=== PATIENT | female | born 1970 | race Hispanic/Latino ===

== ENCOUNTER 2016-12-03 13:09 | Inpatient (IN) | payer OTHER ==
[2016-12-03 14:14] LABS: Anion Gap 18 mmol/L; BUN/Creatinine Ratio 14.28; Blood Urea Nitrogen 10 mg/dL (7-17); Calcium 9.1 mg/dL (8.4-10.2); Carbon Dioxide 26 mmol/L (22-30); Chloride 98.6 mmol/L (98-107); Glucose 129 mg/dL (65-100); Potassium 3.8 mmol/L (3.6-5.0); Sodium 139 mmol/L (137-145)
[2016-12-03 14:22] LABS: Basophils % (Auto) 0.6 % (0.0-1.8); Eosinophils % (Auto) 1.3 % (0.0-4.3); Hematocrit 21.3 % (30.3-42.9); Hemoglobin 6.5 gm/dl (10.1-14.3); Mean Corpuscular HGB Conc 31 % (30-34); Mean Corpuscular Hemoglobin 22 pg (28-32); Mean Corpuscular Volume 71 fl (79-97); Platelet Count 290 K/mm3 (140-440); Red Cell Distribution Width 19.5 % (13.2-15.2); White Blood Count 8.9 K/mm3 (4.5-11.0)
[2016-12-03] MEDS ORDERED: ZOFRAN ONE (14:43)
[2016-12-03] MEDS ORDERED: ZOFRAN IV ONE (14:51)
[2016-12-03] MEDS ORDERED: NACL 0.9% 500 ML 500 ML IV ONE (16:09)
--- NOTE | 2016-12-03 16:37 | Emergency Department Report ---
ED Chest Pain HPI - General Chief Complaint: Chest Pain Stated Complaint: CHEST PAIN/RECTAL BLEED Time Seen by Provider: 12/03/16 16:08 Source: patient Mode of arrival: Ambulatory Limitations: No Limitations - History of Present Illness Initial Comments: Patient is a 46-year-old female with history of hypertension into the ER complaining of chest pain and weakness. Patient reports for the last month she has been having intermittent chest pain which is sharp in nature, radiating to her jaw,arms, amd lower legs. She also reports bouts of SOB, diaphoresis, nausea, vomiting, and diarrhea. More recently she's noticed 2 days of bright red blood per rectum. Patient reports the last month she was following her primary care doctor who thought the chest pain was related to anxiety and started her on a mood stabilizer. Patient reports no difference in chest pain. Patient denies any history of GI bleed, or dark tarry stools. Patient is not on any anticoagulants. Currently patient is chest pain-free and has no other complaints except weakness. Otherwise no fevers, headache, abdominal pain, trauma, travel, or sick contacts. No prior history of transfusions. -: Gradual, month(s) (1) Severity: mild Severity scale (0 -10): 0 Quality: sharp Consistency: intermittent Improves With: nothing Worsens With: nothing re: nausea, vomting, diaphoresis, dyspnea - Related Data Previous Rx's Medication Instructions Recorded Last Taken Type Clindamycin [Clindamycin CAP] 300 mg PO Q8H #20 cap 05/03/15 Unknown Rx Allergies Allergy/AdvReac Type Severity Reaction Status Date / Time Penicillins Allergy Shortness Verified 05/03/15 12:31 of Breath ANGELO score - Angelo Score Age > 65: (0) No Aspirin use within the Past 7 Days: (0) No 3 or more CAD Risk Factors: (0) No 2 or more Angina events in past 24 hrs: (1) Yes Known CAD with more than 50% Stenosis: (0) No Elevated Cardiac Markers: (0) No ST Deviation Greater than 0.5mm: (0) No ANGELO Score: 1 ED Review of Systems ROS: Stated complaint: CHEST PAIN/RECTAL BLEED Other details as noted in HPI Comment: All other systems reviewed and negative ED Past Medical Hx - Past Medical History Hx Hypertension: Yes - Social History Smoking Status: Former Smoker Substance Use Type: None - Medications Home Medications: Home Medications Medication Instructions Recorded Confirmed Last Taken Type Clindamycin [Clindamycin CAP] 300 mg PO Q8H #20 cap 05/03/15 Unknown Rx ED Physical Exam - General Limitations: No Limitations General appearance: alert, in no apparent distress - Head Head exam: Present: atraumatic, normocephalic - Eye Eye exam: Present: normal appearance - ENT ENT exam: Present: mucous membranes moist, other (pale conjunctiva) - Neck Neck exam: Present: normal inspection - Respiratory Respiratory exam: Present: normal lung sounds bilaterally. Absent: respiratory distress, wheezes, rales, rhonchi - Cardiovascular Cardiovascular Exam: Present: normal rhythm, tachycardia, normal heart sounds. Absent: irregular rhythm, systolic murmur, diastolic murmur, rubs, gallop - GI/Abdominal GI/Abdominal exam: Present: soft, normal bowel sounds. Absent: distended, tenderness, guarding, rebound, rigid, hernia - Rectal Rectal exam: Present: heme (-) stool (however in adequate stool sample), hemorrhoids (external). Absent: black stool, bloody stool - Extremities Exam Extremities exam: Present: normal inspection, full ROM. Absent: tenderness, pedal edema - Back Exam Back exam: Present: normal inspection - Neurological Exam Neurological exam: Present: alert, oriented X3 - Psychiatric Psychiatric exam: Present: normal affect, normal mood - Skin Skin exam: Present: warm, dry, intact, normal color. Absent: rash ED Course Vital Signs 12/03/16 12/03/16 12/03/16 13:20 14:33 14:40 Temperature 98.7 F Pulse Rate 103 H 147 H Respiratory 20 27 H 33 H Rate Blood Pressure 157/98 182/102 Blood Pressure [Right] O2 Sat by Pulse 100 100 Oximetry 12/03/16 12/03/16 12/03/16 14:50 14:59 15:00 Temperature 99.4 F Pulse Rate 101 H 105 H Respiratory 13 13 16 Rate Blood Pressure 182/102 154/116 Blood Pressure 154/109 [Right] O2 Sat by Pulse 100 100 100 Oximetry 12/03/16 12/03/16 12/03/16 15:02 15:10 15:20 Temperature Pulse Rate 110 H 102 H Respiratory 16 22 26 H Rate Blood Pressure 154/116 154/116 Blood Pressure [Right] O2 Sat by Pulse 99 99 Oximetry 12/03/16 12/03/16 12/03/16 15:30 15:40 15:50 Temperature Pulse Rate 91 H 99 H 94 H Respiratory 13 14 15 Rate Blood Pressure 154/116 154/116 154/116 Blood Pressure [Right] O2 Sat by Pulse 100 100 99 Oximetry 12/03/16 12/03/16 12/03/16 16:00 16:10 16:20 Temperature Pulse Rate 87 103 H 96 H Respiratory 13 24 19 Rate Blood Pressure 138/83 138/83 138/83 Blood Pressure [Right] O2 Sat by Pulse 97 100 100 Oximetry 12/03/16 12/03/16 12/03/16 16:30 16:40 16:50 Temperature Pulse Rate 95 H 95 H 97 H Respiratory 17 15 15 Rate Blood Pressure 138/83 138/83 138/83 Blood Pressure [Right] O2 Sat by Pulse 100 100 100 Oximetry 12/03/16 12/03/16 12/03/16 17:00 17:10 17:20 Temperature Pulse Rate 97 H 91 H 119 H Respiratory 22 20 20 Rate Blood Pressure 135/77 135/77 135/77 Blood Pressure [Right] O2 Sat by Pulse 100 100 100 Oximetry 12/03/16 12/03/16 12/03/16 17:30 17:40 17:47 Temperature Pulse Rate 86 99 H 105 H Respiratory 16 22 20 Rate Blood Pressure 135/77 135/77 Blood Pressure 135/77 [Right] O2 Sat by Pulse 100 100 100 Oximetry 12/03/16 12/03/16 12/03/16 17:50 18:00 18:10 Temperature Pulse Rate 89 90 90 Respiratory 13 18 17 Rate Blood Pressure 135/77 143/74 143/74 Blood Pressure [Right] O2 Sat by Pulse 100 99 97 Oximetry 12/03/16 12/03/16 12/03/16 18:20 18:30 18:40 Temperature Pulse Rate 90 91 H 123 H Respiratory 18 12 24 Rate Blood Pressure 143/74 135/77 135/77 Blood Pressure [Right] O2 Sat by Pulse 99 100 100 Oximetry 12/03/16 12/03/16 12/03/16 18:50 19:00 19:10 Temperature Pulse Rate 84 82 88 Respiratory 23 15 15 Rate Blood Pressure 135/77 143/74 108/73 Blood Pressure [Right] O2 Sat by Pulse 100 99 Oximetry 12/03/16 20:02 Temperature 98.8 F Pulse Rate 87 Respiratory 14 Rate Blood Pressure 125/80 Blood Pressure [Right] O2 Sat by Pulse 99 Oximetry ED Medical Decision Making - Lab Data Result diagrams: 12/03/16 13:42 12/03/16 13:42 - EKG Data -: EKG Interpreted by Me (13:35, normal sinus rhythm at 89 bpm, QTC 445 ms, LVH) EKG shows normal: ST-T waves (ST depressions inferior lateral leads, no STEMI) - Medical Decision Making Ordered 2u PRBC Critical care attestation.: If time is entered above; I have spent that time in minutes in the direct care of this critically ill patient, excluding procedure time. ED Disposition Clinical Impression: Chest pain, Anemia, Weakness Clinical Impression: (Ruled Out): Chest pain as manifestation of blood transfusion reaction Disposition: OP ADMITTED IP TO THIS HOSP Is pt being admited?: Yes Condition: Stable
--- NOTE | 2016-12-03 16:59 | XRay Report ---
PORTABLE CHEST INDICATION: Chest pain, shortness of breath, nausea, vomiting. COMPARISON: None similar. FINDINGS: Portable, frontal chest radiograph suggests borderline cardiomegaly and slight bronchovascular prominence centrally. No significant cephalization or large pleural effusions however. Clear lungs. EKG leads. Unremarkable bones. CONCLUSION: Borderline cardiomegaly and slight pulmonary vascular redistribution, as described. Please correlate. Thank you for the opportunity to participate in this patient's care.
--- NOTE | 2016-12-03 18:24 | Admit Criteria Form ---
Admission Criteria Documentation: CARDIOLOGY GRG Clinical Indications for Admission to Inpatient Care ( Place 'X' for any and all applicable criteria): Hospital admission is needed for appropriate care of the patient because of ANY ONE of the following (1): [ ] I. Hemodynamic instability as indicated by ALL of the following (1)(2)(3) (4)(5) [ ]a) Vital signs or other findings not as expected for chronic patient condition or baseline [ ]b) Instability indicated by ANY ONE of the following: [ ]i) Hypotension [ ]ii) Symptomatic Tachycardia unresponsive to treatment ( e.g., analgesia, fluids, sedation as indicated) [ ]iii) Inadequate perfusion indicated by ANY ONE of the following: [ ] 1) Lactic acidosis (> 2 mmol/L) [ ] 2) New abnormal capillary refill (> 3 seconds) [ ] 3) Reduced urine output [ ] 4) New altered mental status [ ]iv) Orthostatic vital sign changes unresponsive to treatment (e.g., fluids) [ ]v) IV inotropic or vasopressor medication required to maintain adequate blood pressure or perfusion [ ] II. Severe heart failure as indicated by ANY ONE of the following(17)(18) [ ]a) Respiratory distress [ ]b) Hypotension [ ]c) Anasarca (refractory to outpatient therapy) [ ]d) Cardiac arrhythmias of immediate concern [ ]e) Myocardial ischemia [ ] III. Cardiac arrhythmias or findings of immediate concern indicated by ANY ONE of the following (19)(20): [ ] a) Heart rhythms that are inherently dangerous or unstable indicated by ANY ONE of the following (21)(22)(23): [ ] i) Resuscitated ventricular fibrillation or cardiac arrest [ ] ii) Ventricular escape rhythm [ ] iii) Sustained ventricular tachycardia (30 seconds or more of ventricular rhythm at greater than 100 beats per minute) [ ] iv) Nonsustained ventricular tachycardia and ANY ONE of the following: [ ] 1) Suspected cardiac ischemia as cause or consequence of ventricular tachycardia [ ] 2) In setting of acute myocarditis [ ] b) Unstable cardiac conduction defects indicated by ANY ONE of the following(23)(24)(25) [ ] i) Type II second-degree atrioventricular block [ ]ii) Third-degree atrioventricular block [ ]iii) New-onset left bundle branch block with suspected myocardial ischemia [ ]c) Any heart rhythm and ANY ONE of the following (21)(22)(26)(27) (28) [ ] i) Continuous long-term ECG monitoring needed (e.g., initiation of drug requiring monitoring for more than 24 hours) [ ] ii) Patient has automatic implanted cardioverter defibrillator that is repeatedly firing, malfunctioning, or in need of immediate adjustment of settings beyond the scope of ambulatory or observation care [ ]d) Heart rhythms of concern due to ANY ONE of the following: [ ] i) Hypotension [ ] ii) Respiratory distress [ ] iii) Association with other significant symptoms (e.g., bradycardia with syncope or ongoing dizziness, supraventricular tachycardia with chest pain (14)(15)(17) [ ] IV. Monitoring for cardiac contusion beyond the scope of observation care needed [A](30)(31)(32) [ ] V. Surgical or device complication (e.g., valve replacement complication , pacemaker dysfunction) (35)(41)(44)(45)(46) [ ] . Inpatient palliative care needed. [B](49) Also use Inpatient Palliative Care Criteria [ ] VII. Nonbacterial thrombotic (marantic) endocarditis (36)(43)(47)(48) [X] VIII. Cardiology condition, symptom, or finding for which emergency and observation care has failed or are not considered appropriate. [ ] IX. Acute valvular disease requiring inpatient as indicated by ANY ONE of the following (41) [ ]a) Acute valvular regurgitation (42) [ ]b) Noninfectious valvulitis (43) [ ]c) Obstructive valve thrombosis [ ]d) Paravalvular leak [ ]e) Other significant valvular disorder remaining after emergency or observation level of care (as appropriate) [ ]X. Pericardial disease requiring inpatient treatment as indicated by ANY ONE of the following (33)(34)(35)(36)(37) [ ]a) Suspected tamponade (38)(39)(40) [ ]b) Hemopericardium [ ]c) Other significant pericardial disorder remaining after emergency or observation level of care (as appropriate) [ ] XI. Cardiac ischemia beyond scope of emergency and observation care. [ ] XII. Hypertension requiring inpatient treatment as indicated by ANY ONE of the following (6)(7)(8) [ ]a) SBP greater than 220 mm Hg or DBP greater than 120 mmHg despite treatment [ ]b) SBP greater than 140 mm Hg or DBP greater than 100 mm Hg with evidence of acute end organ damage as indicated by ANY ONE of the following [ ] i) Altered mental status [ ] ii) Acute renal failure as indicated by new onset of ANY ONE of the following (9)(10)(11)(12)(13) [ ]1) 3-fold rise in serum creatinine from baseline [ ]2) Serum creatinine greater than 4 mg/dL ( 354 micromoles/L) with acute rise greater than 0.5 mg/dL (44.2 micromoles/L) [ ]3) Reduction of more than 75% in estimated glomerular filtration rate from baseline [ ]4) Estimated glomerular filtration rate less than 35 mL/min/1.73m2 (0.59 mL/sec/1.73m2) in child up to 18 years of age [ ]5) Cessation of urine output indicated by ALL of the following [ ]A. Adequate volume status [ ]B. Inadequate urine output as indicated by ANY ONE of the following [ ]a. Urine output less than 0.3 mL/kg/hr for 24 hours [ ]b. Anuria (urine output less than 0.1 mL/kg/hr) for 12 hours [ ] iii) Aortic dissection [ ] iv) Myocardial Ischemia [ ] v) Left ventricular heart failure [ ]vi) Retinal Hemorrhage [ ]vii) Other significant finding [ ]c) Hypertension in child requiring inpatient treatment as indicated by ALL of the following(14)(15)(16) [ ] i) Outpatient treatment not effective, not available, or not appropriate [ ]ii) SBP or DBP greater than 95th percentile for age [ ]iii) Evidence of acute end organ damage as indicated by ANY ONE of the following [ ]1) Altered mental status [ ]2) Acute renal failure as indicated by new onset of ANY ONE of the following(9)(10)(11)(12)(13) [ ]A. 3-fold rise in serum creatinine from baseline [ ]B. Serum creatinine greater than 4 mg/dL (354 micromoles/L) with acute rise greater than 0.5 mg/dL (44.2 micromoles/L) [ ]C. Reduction of more than 75% in estimated glomerular filtration rate from baseline [ ]D. Estimated glomerular filtration rate less than 35 mL/min/1.73m2 (0.59 mL/sec/1.73m2) in child up to 18 years of age [ ]E. Cessation of urine output indicated by ALL of the following [ ]a. Adequate volume status [ ]b. Inadequate urine output as indicated by ANY ONE of the following [ ]i) Urine output less than 0.3 mL/kg/hr for 24 hours [ ]ii) Anuria ( urine output less than 0.1 mL/kg/hr) for 12 hours [ ]3) Severe headache [ ]4) Visual disturbance [ ]5) Retinal hemorrhage [ ]6) Other significant finding [ ]XIII. Complications of transplanted heart indicated by ANY ONE of the following(61): [ ]a) Acute graft rejection requiring inpatient management (eg, intravenous immunosuppression)(62)(63) [ ]b) Acute graft heart failure indicated by ANY ONE of the following(64): [ ]i) Hemodynamic instability [ ]ii) Cardiac arrhythmias of immediate concern [ ]iii) Pulmonary edema that is very severe (eg, mechanical ventilation needed, imminent or likely, need for 100% oxygen to keep oxygen saturation above 90%) [ ]iv) Pulmonary edema that is persistent as indicated by ALL of the following: [ ]1) New need for oxygen therapy to keep oxygen saturation above 90% (or increased FiO2 need from baseline) [ ]2) Has not improved sufficiently with emergency department or observation care IV diuretics or other heart failure treatments[E] [ ]v) Altered mental status that is severe or persistent [ ]vi) Increased creatinine (new on laboratory test) with reduction of more than 50% in estimated glomerular filtration rate from baseline [ ]vii) Progressively (ongoing) rising creatinine (known from past laboratory test) with reduction of more than 25% in estimated glomerular filtration rate from baseline [ ]viii) Acute renal failure [ ]ix) Acute peripheral ischemia (eg, examination shows pulseless, cool, mottled, or cyanotic extremity) [ ]x) Pulmonary artery catheter monitoring needed [ ]xi) Other sign or symptom of heart failure requiring inpatient treatment (ie, too severe or not responsive to outpatient and observation care treatment) [ ]c) Infection requiring inpatient management (eg, Hemodynamic instability, need for intravenous antimicrobial treatment)(66)(67)(68)(69)(70) [ ]d) Cardiac allograft vasculopathy requiring inpatient management ( eg evidence of cardiac ischemia)(71) [ ]e) Other complication of transplanted heart (eg, stroke, severe pulmonary hypertension, severe valvular dysfunction) requiring inpatient management(72) The original [facility] [employer] content created by [email or web address] has been revised. The portions of the content which have been revised are identified through the use of italic text or in bold, and [facility] has neither reviewed nor approved the modified material. All other unmodified content is copyright [facility] [email or web address]. Please see references footnoted in the original [facility] [email or web address] edition 2016 Admission Criteria Met: Yes
--- NOTE | 2016-12-03 23:43 | Event Note ---
Date: 12/03/16 See H/p in reports Chest pain r/o MO Acute anemia HTN uncontrolled GI eval
[2016-12-04] MEDS ORDERED: TYLENOL PO PRN (01:04)
[2016-12-04] MEDS ORDERED: MILK OF MAGNESIA PO PRN (01:04)
[2016-12-04] MEDS ORDERED: ZOFRAN IV PRN (01:04)
[2016-12-04] MEDS ORDERED: DULCOLAX PR PRN (01:04)
[2016-12-04] MEDS ORDERED: AMBIEN PO PRN (01:04)
[2016-12-04] MEDS ORDERED: SODIUM CHLORIDE FLUSH SYRINGE 10 ML IV PRN (01:17)
[2016-12-04] MEDS: PROTONIX 80 MG in NACL 0.9% 100 ML IV SCH ×2 (02:33→17:16)
[2016-12-04] MEDS: D5/0.45NS 1,000 ML IV SCH ×2 (02:34→20:10)
--- NOTE | 2016-12-04 02:51 | History and Physical Report ---
CHIEF COMPLAINT: Chest pain for the last one month. HISTORY OF PRESENT ILLNESS: A 46-year-old -[place] female who presents with left-sided chest pain, intermittent in nature, more so for the last few days. Her primary care attributed the chest pain to anxiety and was given mood stabilizers. The patient also denies any GI bleed or dark tarry stools. Not on any NSAIDs. PAST MEDICAL HISTORY: Significant for hypertension. SOCIAL HISTORY: Former smoker. ANGELO score is 1. HOME MEDICATIONS: Clindamycin 300 mg q.8h. FAMILY HISTORY: Significant for hypertension. REVIEW OF SYSTEMS: Significant for; CONSTITUTIONAL: No weight loss, no weight gain. HEENT: No sore throat, no postnasal drip. CARDIOVASCULAR AND RESPIRATORY SYSTEM: Left-sided chest pain. No diaphoresis. No palpitations. GASTROINTESTINAL: No nausea, no vomiting, no diarrhea. No black tarry stools. EXTREMITIES: No muscle pains. CENTRAL NERVOUS SYSTEM: No syncope, no seizures. PHYSICAL EXAMINATION: GENERAL: Young female, cooperative during examination. VITAL SIGNS: Blood pressure 154/116 and 182/102, pulse is 100, respirations 16, temperature is 98.7. HEENT: Unremarkable. Pupils equal and reactive. NECK: Supple, no lymphadenopathy, no thyromegaly. LUNGS: Clear to auscultation and percussion. Good air entry. CARDIOVASCULAR: S1, S2 heard. No gallop, no murmur, no rub. Apical impulse in left fifth intercostal space and midclavicular line. ABDOMEN: Soft and benign. No hepatosplenomegaly. No guarding, no rigidity. Hernial orifices are normal. EXTREMITIES: Good pedal pulses. No pedal edema. CENTRAL NERVOUS SYSTEM: Alert and oriented x 4. NEUROLOGIC: Nonfocal exam. LABORATORY DATA: Significant for white count of 8900, H and H is 6.5 and 21.3, and platelet count is 290,000. Sodium is 139, potassium is 3.8, chloride is 98.6, bicarbonate is 26, BUN and creatinine is 10 and 0.7, and glucose is 129. IMAGING: EKG shows ST-T wave changes in the inferior leads. ST depressions. No STEMI. ASSESSMENT AND PLAN: 1. Chest pain, rule out myocardial infarction, chest pain protocol. 2. Acute anemia. Blood transfusion for the time being. Also, GI consult is requested. 3. Hypertension, uncontrolled. Optimize antihypertensives. 4. Deep venous thrombosis prophylaxis, sequential compression devices only. JOB# [id number] GATITO/ROSY
[2016-12-04 06:58] LABS: Creatine Kinase MB 2.2 ng/mL (0.0-4.0)
[2016-12-04 07:01] LABS: Creatine Kinase 173 units/L (30-135)
[2016-12-04] MEDS ORDERED: PEPCID PO SCH (10:00)
[2016-12-04] MEDS: NORVASC PO SCH (12:20)
[2016-12-04] MEDS: PAXIL PO SCH (12:21)
[2016-12-04] MEDS: COZAAR PO SCH (12:21)
[2016-12-04] MEDS: HCTZ PO SCH (12:22)
--- NOTE | 2016-12-04 14:07 | Gastroenterology Consultation ---
<VARGASTHOMAS ANN - Last Filed: 12/04/16 14:15> History of Present Illness - Reason for Consult Consult date: 12/04/16 anemia Requesting physician: ASHLEY VASQUEZ - History of Present Illness Ms. Schumacher is a 46 y/o female admitted with Chest pain. She was found to be anemic on admission with an H/H of 6.5/25. She states she has been having BRBPR x 2 weeks. No prior hx of chest pain, no abdominal pain. She reports she has seen blood per tissue intermittently in the past. No prior EGD or colonoscopy. No weight loss or N/V. She recently took 5-6 Goody powders for menstrual cramping, she also reports taking a daily ASA for preventative measures. BUN is WNL. Past History Past Medical History: hypertension Past Surgical History: Other (tubal ligation) Social history: lives with family. denies: smoking Family history: hypertension Medications and Allergies Allergies Allergy/AdvReac Type Severity Reaction Status Date / Time Penicillins Allergy Shortness Verified 05/03/15 12:31 of Breath Home Medications Medication Instructions Recorded Confirmed Last Taken Type Hydrochlorothiazide [HCTZ] 25 mg PO DAILY 12/03/16 12/03/16 12/03/16 History PARoxetine [Paxil] 20 mg PO DAILY 12/03/16 12/03/16 12/03/16 History amLODIPine [Norvasc] 5 mg PO DAILY 12/03/16 12/03/16 12/03/16 History Active Meds: Active Medications Acetaminophen (Tylenol) 650 mg PO Q4H PRN PRN Reason: Pain MILD(1-3)/Fever >100.5/NICHOLSON Amlodipine Besylate (Norvasc) 5 mg PO DAILY [facility] Last Admin: 12/04/16 12:20 Dose: 5 mg Bisacodyl (Dulcolax) 10 mg ME QDAY PRN PRN Reason: Constipation unrelieved by MOM Hydrochlorothiazide (Hctz) 25 mg PO DAILY [facility] Last Admin: 12/04/16 12:22 Dose: 25 mg Hydromorphone HCl (Dilaudid) 1 mg IV Q3H PRN PRN Reason: Pain , Severe (7-10) Dextrose/Sodium Chloride (D5/0.45ns) 1,000 mls @ 100 mls/hr IV DIRECT [facility] Last Admin: 12/04/16 02:34 Dose: 100 mls/hr Pantoprazole Sodium 80 mg/ (Sodium Chloride) 100 mls @ 10 mls/hr IV DIRECT [facility] PRN Reason: 8 MG/HR Last Admin: 12/04/16 02:33 Dose: 8 mg/hr, 10 mls/hr Losartan Potassium (Cozaar) 100 mg PO QDAY [facility] Last Admin: 12/04/16 12:21 Dose: 100 mg Magnesium Hydroxide (Milk Of Magnesia) 30 ml PO Q4H PRN PRN Reason: Constipation Ondansetron HCl (Zofran) 4 mg IV Q3H PRN PRN Reason: N/V unrelieved by Reglan Oxycodone/Acetaminophen (Percocet 5/325) 1 tab PO Q6H PRN PRN Reason: Pain, Moderate (4-6) Paroxetine HCl (Paxil) 20 mg PO DAILY [facility] Last Admin: 12/04/16 12:21 Dose: 20 mg Sodium Chloride (Sodium Chloride Flush Syringe 10 Ml) 10 ml IV PRN PRN PRN Reason: LINE FLUSH Zolpidem Tartrate (Ambien) 5 mg PO QHS PRN PRN Reason: Insomnia Review of Systems - Review of Systems All systems: negative Cardiovascular: chest pain Gastrointestinal: BRBPR Exam - Constitutional Vital Signs: Temp Pulse Resp BP Pulse Ox 97.6 F 87 20 163/93 98 12/04/16 08:00 12/04/16 12:46 12/04/16 10:00 12/04/16 08:00 12/04/16 10:00 General appearance: no acute distress - EENT Eyes: EOM intact ENT: hearing intact - Neck Neck: supple - Respiratory Respiratory: bilateral: CTA - Cardiovascular Rhythm: regular Heart Sounds: Present: S1 & S2 - Gastrointestinal General gastrointestinal: Present: soft, non-tender, normal bowel sounds - Integumentary Integumentary: Present: warm, dry - Neurologic Neurological: alert and oriented x3 - Psychiatric Psychiatric: appropriate mood/affect, cooperative - Labs CBC & Chem 7: 12/03/16 13:42 12/03/16 13:42 Lab Results: Laboratory Results - last 24 hr 12/04/16 06:09 Total Creatine Kinase 173 H CK-MB (CK-2) 2.2 CK-MB (CK-2) Rel Index 1.2 Troponin T < 0.010 Assessment and Plan 1. Chest Pain -Likely 2/2 anemia. Patient underwent first part of stress test this AM and will complete tomorrow. -Troponins negative x 3 -Echo pending. 2. Anemia -Microcytic -Patient does report heavy menstrual cycles as well, but H/H WNL in 2014. -BRBPR increased over the last 2 weeks. -BUN WNL, however in the setting of daily NSAID use and significant drop of H/H from Prior baseline, will order EGD/Colonoscopy. -Tenative plan for tomorrow. -Prep this PM -NPO after MN -Check Coags ~~~~~~ of note, patient is to complete last part of stress test in AM. <JAMAICA MILLS - Last Filed: 12/04/16 15:51> Medications and Allergies Active Meds: Active Medications Acetaminophen (Tylenol) 650 mg PO Q4H PRN PRN Reason: Pain MILD(1-3)/Fever >100.5/NICHOLSON Amlodipine Besylate (Norvasc) 5 mg PO DAILY [facility] Last Admin: 12/04/16 12:20 Dose: 5 mg Bisacodyl (Dulcolax) 10 mg ME QDAY PRN PRN Reason: Constipation unrelieved by MOM Hydrochlorothiazide (Hctz) 25 mg PO DAILY [facility] Last Admin: 12/04/16 12:22 Dose: 25 mg Hydromorphone HCl (Dilaudid) 1 mg IV Q3H PRN PRN Reason: Pain , Severe (7-10) Dextrose/Sodium Chloride (D5/0.45ns) 1,000 mls @ 100 mls/hr IV DIRECT [facility] Last Admin: 12/04/16 02:34 Dose: 100 mls/hr Pantoprazole Sodium 80 mg/ (Sodium Chloride) 100 mls @ 10 mls/hr IV DIRECT CORDELIA PRN Reason: 8 MG/HR Last Admin: 12/04/16 02:33 Dose: 8 mg/hr, 10 mls/hr Losartan Potassium (Cozaar) 100 mg PO QDAY [facility] Last Admin: 12/04/16 12:21 Dose: 100 mg Magnesium Hydroxide (Milk Of Magnesia) 30 ml PO Q4H PRN PRN Reason: Constipation Ondansetron HCl (Zofran) 4 mg IV Q3H PRN PRN Reason: N/V unrelieved by Reglan Oxycodone/Acetaminophen (Percocet 5/325) 1 tab PO Q6H PRN PRN Reason: Pain, Moderate (4-6) Paroxetine HCl (Paxil) 20 mg PO DAILY [facility] Last Admin: 12/04/16 12:21 Dose: 20 mg Polyethylene Glycol/Electrolytes (Golytely) 4,000 ml PO ONCE ONE Stop: 12/04/16 17:01 Sodium Chloride (Sodium Chloride Flush Syringe 10 Ml) 10 ml IV PRN PRN PRN Reason: LINE FLUSH Zolpidem Tartrate (Ambien) 5 mg PO QHS PRN PRN Reason: Insomnia Exam - Constitutional Vital Signs: Temp Pulse Resp BP Pulse Ox 97.6 F 87 20 163/93 98 12/04/16 08:00 12/04/16 12:46 12/04/16 10:00 12/04/16 08:00 12/04/16 10:00 - Labs CBC & Chem 7: 12/03/16 13:42 12/03/16 13:42 Lab Results: Laboratory Results - last 24 hr 12/04/16 06:09 Total Creatine Kinase 173 H CK-MB (CK-2) 2.2 CK-MB (CK-2) Rel Index 1.2 Troponin T < 0.010 Assessment and Plan Pt has had intermittent rectal bleed x 2-3 yrs. Over the last week, she has had BRB dripping or running out into the toilet bowl after a normal brown BM 2- 3x/d. No change in BMs, no rectal or abd pain. She has experienced CONDE and chest discomfort with exertion while working at the [employer] or heat over the last month. No known hemorrhoids. 1. Chest pain - due to anemia. Discussed with Hospitalist, who has cancelled Cardiac evaluation due to anemia as source, and low likelihood of cardiac disease. 2. Anemia - microcytic and due to chronic slow blood loss from menses and rectal losses. Most likely anorectal source and likely hemorrhoids. No hx of melena. - agree with transfusion Needs colonoscopy
--- NOTE | 2016-12-04 15:51 | Progress Note ---
Assessment and Plan Ms. Schumacher is a 46 y/o female presented with Chest pain and BRBPR x 2 weeks. She was found to be anemic on admission with an H/H of 6.5/25. She recently took 5-6 Goody powders for menstrual cramping, she also reports taking a daily ASA for preventative measures. Chest pain -Likely due to demand ischemia -Cardiac enzymes are normal -Patient had first phase of the stress test today will complete the second rays tomorrow Acute anemia - Due to lower GI bleed -GI following, plan for colonoscopy likely on Wednesday - We will avoid heparin HTN uncontrolled - We'll place on home medications and will adjust medicine as needed - She is currently on HCTZ, Cozaar and amlodipine Obesity, likely due to excess calorie - Dietary recommendations when medically stable GI and DVT prophylaxis - Protonix and SCD Subjective Date of service: 12/04/16 Interval history: Patient seen and examined. Medical records and medication list reviewed. No acute event overnight noted by the RN. Patient denies any chest pain or difficulty breathing. Patient states that she was having gross hematochezia for the past few days Discussed plan of care at bedside with patient. Objective - Exam Narrative Exam: GENERAL: well-developed obese -[place] female lying on bed appeared to be in no discomfort. HEENT: Normocephalic. Atraumatic. No conjunctival congestion or icterus. Patient has moist mucous membranes. NECK: Supple. Trachea midline. CHEST/LUNGS: Clear to auscultated bilaterally, breathing nonlabored. No wheezes crackles or rhonchi. HEART/CARDIOVASCULAR: Regular in rate and rhythm. S1 and S2 positive. ABDOMEN: Abdomen is soft, nontender. Patient has normal bowel sounds. SKIN: There is no rash. Warm and dry. NEURO: No focal motor deficit. Follows command. MUSCULOSKELETAL: No joint effusion or tenderness. EXTRIMITY: No edema, no cyanosis or clubbing. PSYCH: Cooperative. - Constitutional Vitals: Vital Signs - 12hr 12/04/16 12/04/16 12/04/16 04:58 08:00 10:00 Temperature 97.6 F 97.6 F Pulse Rate Pulse Rate [ 68 87 78 From Monitor] Respiratory 18 20 20 Rate Respiratory 20 Rate [Chest] Blood Pressure 122/60 163/93 [Left Arm] O2 Sat by Pulse 97 98 98 Oximetry 12/04/16 12:46 Temperature Pulse Rate 87 Pulse Rate [ From Monitor] Respiratory Rate Respiratory Rate [Chest] Blood Pressure [Left Arm] O2 Sat by Pulse Oximetry - Labs CBC & Chem 7: 12/05/16 05:51 12/05/16 05:51 Labs: Abnormal lab results 12/04/16 Range/Units 06:09 Total Creatine Kinase 173 H (30-135) units/L
[2016-12-04] MEDS ORDERED: GOLYTELY PO ONE (17:00)
[2016-12-05 06:26] LABS: Basophils % (Auto) 0.5 % (0.0-1.8); Hematocrit 24.3 % (30.3-42.9); Hemoglobin 7.4 gm/dl (10.1-14.3); Mean Corpuscular HGB Conc 31 % (30-34); Mean Corpuscular Volume 75 fl (79-97); Platelet Count 227 K/mm3 (140-440); Red Blood Count 3.26 M/mm3 (3.65-5.03); White Blood Count 7.2 K/mm3 (4.5-11.0)
[2016-12-05 06:28] LABS: Mean Corpuscular Hemoglobin 23 pg (28-32); Red Cell Distribution Width 20.6 % (13.2-15.2)
[2016-12-05] MEDS: PROTONIX 80 MG in NACL 0.9% 100 ML IV SCH (06:45)
[2016-12-05 07:24] LABS: Alanine Aminotransferase 17 units/L (7-56); Albumin 3.5 g/dL (3.9-5); Albumin/Globulin Ratio 1.2 %; Alkaline Phosphatase 79 units/L (35-129); Anion Gap 18 mmol/L; Bilirubin,Total < 0.20 mg/dL (0.1-1.2); Blood Urea Nitrogen 7 mg/dL (7-17); Calcium 8.3 mg/dL (8.4-10.2); Carbon Dioxide 21 mmol/L (22-30); Chloride 103.5 mmol/L (98-107); Glucose 107 mg/dL (65-100); Potassium 4.1 mmol/L (3.6-5.0); Sodium 138 mmol/L (137-145); Total Protein 6.5 g/dL (6.3-8.2)
[2016-12-05] MEDS ORDERED: LEXISCAN IV ONE ×2 (08:20→09:33)
[2016-12-05] MEDS ORDERED: WATER FOR IRRIG STERILE IR ONE (11:51)
[2016-12-05] MEDS ORDERED: WATER FOR IRRIG STERILE ONE (11:52)
[2016-12-05] MEDS ORDERED: NACL 0.9% 1000 ML 1,000 ML ONE (12:14)
[2016-12-05] MEDS: NACL 0.9% 1000 ML 1,000 ML IV SCH ×2 (13:07→23:07)
[2016-12-05] MEDS ORDERED: VERSED IV ONE ×4 (13:07→13:47)
[2016-12-05] MEDS ORDERED: SUBLIMAZE ONE (13:08)
[2016-12-05] MEDS ORDERED: BENADRYL ONE (13:08)
[2016-12-05] MEDS ORDERED: SUBLIMAZE IV ONE (13:40)
[2016-12-05] MEDS ORDERED: BENADRYL IV ONE (13:42)
[2016-12-05] MEDS ORDERED: PROCTOSOL-HC PR PRN (14:22)
--- NOTE | 2016-12-05 14:26 | Post Operative Note ---
Pre-op diagnosis: GI bleed Post-op diagnosis: other (Polyps, Hemorrhoids, Abnormal Anal mucosa) Findings: 1. Poor prep (some semisolid brown stool throughout). 2. 3mm polyp, rectosigmoid, cold snare 3. Grade III IH and EH with trace bleed 4. Some of mucosa in the anal canal was irregular and friable; small biopsy taken Procedure: Colonoscopy with cold bx and cold snare polypectomy Anesthesia: MAC Surgeon: GARRETT GARCIA Estimated blood loss: minimal Pathology: list (1. Rectosigmoid polyp. 2. Anal canal mucosa.) Specimen disposition: to lab Condition: stable Disposition: floor (Recs: 1. Start topical care for hemorrhoids. 2. If stops bleeding, may d/c home. 3. If continues to bleed, will need surgical consult but would wait for biopsy of canal to return first. 4. Regular diet.)
--- NOTE | 2016-12-05 14:54 | Operative Report ---
PROCEDURE PERFORMED: Colonoscopy with cold snare polypectomy and cold biopsy. PREOPERATIVE DIAGNOSES: Rectal bleeding and anemia of unclear etiology. POSTOPERATIVE DIAGNOSES: Poor preparation, colon polyp, hemorrhoids, irregular mucosa in the anal canal. ENDOSCOPIST: Rikki Boo MD INSTRUMENT: Smartzer video endoscope. MEDICATIONS: Conscious sedation by a nurse and physician trained and qualified in conscious sedation. Medications used included fentanyl 50 mcg IV, Benadryl 25 mg IV and Versed 5 mg IV. The patient was monitored continuously throughout the procedure and for 30 minutes afterwards. ESTIMATED BLOOD LOSS: Minimal. COMPLICATIONS: None. SPECIMENS: 1. Rectosigmoid polyp. 2. Abnormal anal canal mucosa. IMPLANTS: None. ASSISTANTS: None. CONDITION AT COMPLETION: Stable. TECHNIQUE: The patient was informed of the risks and benefits of the procedure. She signed the informed consent to proceed. She was placed in left lateral decubitus position. The above sedative medications were given. Her vital signs remained stable throughout the procedure. The instrument was advanced from the anus to the cecum under direct visualization. The cecum was identified by the appendiceal orifice and the ileocecal valve. At that point, the bowel was insufflated and the endoscope was slowly withdrawn. The quality of preparation was poor and there was some semisolid brown stool throughout. FINDINGS: 1. Poor prep with semisolid brown stool throughout the colon. 2. A 3-mm polyp at the rectosigmoid junction, removed with cold snare polypectomy. 3. Grade 3 internal and external hemorrhoids with a trace of blood in the anal canal. 4. Submucosa in the anal canal was irregular and friable; a small biopsy was taken. RECOMMENDATIONS: 1. Start topical care for hemorrhoids. 2. If the patient stops bleeding, she may discharge home. 3. If the patient continues to bleed, she will need a surgical consult, but would wait for biopsy of the anal canal to return first. 4. Regular diet. JOB# [id number] JOHN/NTS
--- NOTE | 2016-12-05 18:08 | Progress Note ---
Assessment and Plan Ms. Schumacher is a 46 y/o female presented with Chest pain and BRBPR x 2 weeks. She was found to be anemic on admission with an H/H of 6.5/25. She recently took 5-6 Goody powders for menstrual cramping, she also reports taking a daily ASA for preventative measures. Chest pain -Likely due to demand ischemia -Cardiac enzymes are normal -Patient completed her stress test today, wait for result Acute anemia - Due to lower GI bleed from hemorrhoids - GI following, s/p colonoscopy today - We will avoid heparin HTN uncontrolled - We'll cont on home medications and will adjust medicine as needed - She is currently on HCTZ, Cozaar and amlodipine Hemorrhoids - placed on topical steroid - if cont to bleed will need surgery consult Obesity, likely due to excess calorie - Dietary recommendations when medically stable GI and DVT prophylaxis - Protonix and SCD Procedure: Colonoscopy with cold bx and cold snare polypectomy Pre-op diagnosis: GI bleed Post-op diagnosis: other (Polyps, Hemorrhoids, Abnormal Anal mucosa) Findings: 1. Poor prep (some semisolid brown stool throughout). 2. 3mm polyp, rectosigmoid, cold snare 3. Grade III IH and EH with trace bleed 4. Some of mucosa in the anal canal was irregular and friable; small biopsy taken Subjective Date of service: 12/05/16 Interval history: Patient seen and examined. Medical records and medication list reviewed. No acute event overnight noted by the RN. Patient denies any chest pain or difficulty breathing. Patient states that she was having gross hematochezia for the past few days She had another episode of bloody BM this am s/p colonoscopy today Discussed plan of care at bedside with patient. Objective - Exam Narrative Exam: GENERAL: well-developed obese -[place] female lying on bed appeared to be in no discomfort. HEENT: Normocephalic. Atraumatic. No conjunctival congestion or icterus. Patient has moist mucous membranes. NECK: Supple. Trachea midline. CHEST/LUNGS: Clear to auscultated bilaterally, breathing nonlabored. No wheezes crackles or rhonchi. HEART/CARDIOVASCULAR: Regular in rate and rhythm. S1 and S2 positive. ABDOMEN: Abdomen is soft, nontender. Patient has normal bowel sounds. SKIN: There is no rash. Warm and dry. NEURO: No focal motor deficit. Follows command. MUSCULOSKELETAL: No joint effusion or tenderness. EXTRIMITY: No edema, no cyanosis or clubbing. PSYCH: Cooperative. - Constitutional Vitals: Vital Signs - 12hr 12/05/16 12/05/16 12/05/16 08:35 09:55 10:00 Temperature 98.7 F Pulse Rate 74 113 H Pulse Rate [ 100 H From Monitor] Pulse Rate [ 80 100 H Right Radial] Respiratory 16 18 Rate Blood Pressure 142/91 123/83 Blood Pressure 121/84 [Right Arm] O2 Sat by Pulse 100 100 Oximetry 12/05/16 12/05/16 12/05/16 10:01 10:02 10:03 Temperature Pulse Rate 100 H 99 H 89 Pulse Rate [ From Monitor] Pulse Rate [ Right Radial] Respiratory Rate Blood Pressure 121/78 139/89 129/85 Blood Pressure [Right Arm] O2 Sat by Pulse Oximetry 12/05/16 12/05/16 12/05/16 10:04 12:45 13:00 Temperature 98.6 F Pulse Rate 89 80 80 Pulse Rate [ From Monitor] Pulse Rate [ Right Radial] Respiratory 16 Rate Blood Pressure 139/88 127/64 Blood Pressure [Right Arm] O2 Sat by Pulse 100 Oximetry 12/05/16 12/05/16 12/05/16 13:03 13:40 13:45 Temperature Pulse Rate 80 96 H Pulse Rate [ From Monitor] Pulse Rate [ 75 Right Radial] Respiratory 17 28 H Rate Blood Pressure 102/58 98/57 Blood Pressure 102/51 [Right Arm] O2 Sat by Pulse 100 99 Oximetry 12/05/16 12/05/16 12/05/16 13:50 13:55 14:00 Temperature Pulse Rate 89 89 105 H Pulse Rate [ From Monitor] Pulse Rate [ Right Radial] Respiratory 18 24 16 Rate Blood Pressure 170/147 94/53 89/46 Blood Pressure [Right Arm] O2 Sat by Pulse 99 99 100 Oximetry 12/05/16 12/05/16 12/05/16 14:01 14:16 14:31 Temperature 99.1 F Pulse Rate 83 76 75 Pulse Rate [ From Monitor] Pulse Rate [ Right Radial] Respiratory 17 19 18 Rate Blood Pressure 106/58 107/61 97/49 Blood Pressure [Right Arm] O2 Sat by Pulse 100 100 100 Oximetry 12/05/16 17:49 Temperature Pulse Rate Pulse Rate [ From Monitor] Pulse Rate [ 86 Right Radial] Respiratory Rate Blood Pressure Blood Pressure 124/72 [Right Arm] O2 Sat by Pulse Oximetry - Labs CBC & Chem 7: 12/05/16 05:51 12/05/16 05:51 Labs: Abnormal lab results 12/05/16 12/05/16 Range/Units 05:51 05:51 RBC 3.26 L (3.65-5.03) M/mm3 Hgb 7.4 L (10.1-14.3) gm/dl Hct 24.3 L (30.3-42.9) % MCV 75 L D (79-97) fl MCH 23 L (28-32) pg RDW 20.6 H (13.2-15.2) % [place] % (Auto) 12.5 H (0.0-7.3) % [place] # 0.9 H (0.0-0.8) K/mm3 Carbon Dioxide 21 L (22-30) mmol/L Creatinine 0.5 L (0.7-1.2) mg/dL Glucose 107 H (65-100) mg/dL Calcium 8.3 L (8.4-10.2) mg/dL Albumin 3.5 L (3.9-5) g/dL
[2016-12-05] MEDS: NORVASC PO SCH (18:25)
[2016-12-05] MEDS: COZAAR PO SCH (18:26)
[2016-12-05] MEDS: HCTZ PO SCH (18:27)
[2016-12-05] MEDS: PROCTOSOL-HC PR SCH (22:42)
[2016-12-06] MEDS: DILAUDID IV PRN ×3 (02:46→22:43)
--- NOTE | 2016-12-06 04:42 | Treadmill Report ---
THALLIUM STRESS TEST LEFT VENTRICLE: Left ventricle is at the upper limits of normal in size. Perfusion study is suboptimal, with evidence of GI uptake and somewhat heterogeneous uptake from motion artifact. There is normal apical thinning, but otherwise, no significant reversible defects identified. Gated analysis demonstrates normal left ventricular systolic function, ejection fraction 61%. CONCLUSION: This is a suboptimal perfusion study as described above, no significant reversible ischemia is demonstrated. Clinical correlation is recommended. [facility]# [id number] CA/NTS
[2016-12-06 04:57] LABS: Basophils % (Auto) 0.5 % (0.0-1.8); Eosinophils % (Auto) 2.2 % (0.0-4.3); Hematocrit 21.2 % (30.3-42.9); Hemoglobin 6.5 gm/dl (10.1-14.3); Mean Corpuscular HGB Conc 31 % (30-34); Mean Corpuscular Volume 75 fl (79-97); Platelet Count 213 K/mm3 (140-440); Red Blood Count 2.84 M/mm3 (3.65-5.03); White Blood Count 8.1 K/mm3 (4.5-11.0)
[2016-12-06 05:27] LABS: Mean Corpuscular Hemoglobin 23 pg (28-32); Red Cell Distribution Width 21.3 % (13.2-15.2)
[2016-12-06] MEDS ORDERED: NACL 0.9% 500 ML 500 ML IV ONE (08:07)
[2016-12-06] MEDS: PROCTOSOL-HC PR SCH ×3 (08:10→22:46)
--- NOTE | 2016-12-06 09:47 | Progress Note ---
Assessment and Plan Ms. Schumacher is a 46 y/o female presented with Chest pain and BRBPR x 2 weeks. She was found to be anemic on admission with an H/H of 6.5/25. She recently took 5-6 Goody powders for menstrual cramping, she also reports taking a daily ASA for preventative measures. Chest pain -Likely due to demand ischemia -Cardiac enzymes are normal -Patient completed her stress test on 12/05 which was normal Acute anemia - Due to lower GI bleed from hemorrhoids - s/p 2 units of PRBC transfusion following admission - GI following, s/p colonoscopy - Hb further dropped today, will consult surgery and will transfuse another unit PRBC HTN uncontrolled - We'll cont on home medications and will adjust medicine as needed - She is currently on HCTZ, Cozaar and amlodipine Hemorrhoids - placed on topical steroid - if cont to bleed will need surgery consult Obesity, likely due to excess calorie - Dietary recommendations when medically stable GI and DVT prophylaxis - Protonix and SCD Procedure: 12/05/16 Colonoscopy with cold bx and cold snare polypectomy Pre-op diagnosis: GI bleed Post-op diagnosis: other (Polyps, Hemorrhoids, Abnormal Anal mucosa) Findings: 1. Poor prep (some semisolid brown stool throughout). 2. 3mm polyp, rectosigmoid, cold snare 3. Grade III IH and EH with trace bleed 4. Some of mucosa in the anal canal was irregular and friable; small biopsy taken Subjective Date of service: 12/06/16 Interval history: Patient seen and examined. Medical records and medication list reviewed. No acute event overnight noted by the RN. Hb 6.5 this am, denies any bloody BM Discussed plan of care at bedside with patient. Objective - Exam Narrative Exam: GENERAL: well-developed obese -[place] female lying on bed appeared to be in no discomfort. HEENT: Normocephalic. Atraumatic. No conjunctival congestion or icterus. Patient has moist mucous membranes. NECK: Supple. Trachea midline. CHEST/LUNGS: Clear to auscultated bilaterally, breathing nonlabored. No wheezes crackles or rhonchi. HEART/CARDIOVASCULAR: Regular in rate and rhythm. S1 and S2 positive. ABDOMEN: Abdomen is soft, nontender. Patient has normal bowel sounds. SKIN: There is no rash. Warm and dry. NEURO: No focal motor deficit. Follows command. MUSCULOSKELETAL: No joint effusion or tenderness. EXTRIMITY: No edema, no cyanosis or clubbing. PSYCH: Cooperative. - Constitutional Vitals: Vital Signs - 12hr 12/05/16 12/06/16 12/06/16 22:00 00:15 05:00 Temperature 98.6 F 98.5 F Pulse Rate 92 H Pulse Rate [ 86 80 Right Radial] Respiratory 20 18 Rate Blood Pressure 118/59 95/57 [Right Arm] O2 Sat by Pulse 98 100 Oximetry 12/06/16 09:31 Temperature 99 F Pulse Rate Pulse Rate [ 91 H Right Radial] Respiratory 16 Rate Blood Pressure 102/68 [Right Arm] O2 Sat by Pulse 100 Oximetry - Labs CBC & Chem 7: 12/06/16 20:13 12/05/16 05:51 Labs: Abnormal lab results 12/06/16 Range/Units 03:43 RBC 2.84 L (3.65-5.03) M/mm3 Hgb 6.5 L (10.1-14.3) gm/dl Hct 21.2 L (30.3-42.9) % MCV 75 L (79-97) fl MCH 23 L (28-32) pg RDW 21.3 H (13.2-15.2) % [place] % (Auto) 13.4 H (0.0-7.3) % [place] # 1.1 H (0.0-0.8) K/mm3
[2016-12-06] MEDS: NORVASC PO SCH (10:48)
[2016-12-06] MEDS: HCTZ PO SCH (10:49)
[2016-12-06] MEDS: COZAAR PO SCH (10:49)
[2016-12-06] MEDS: PAXIL PO SCH (11:35)
--- NOTE | 2016-12-06 13:56 | Gastroenterology Progress Note ---
Assessment and Plan - Patient Problems (1) Acute blood loss anemia Current Visit: Yes Status: Acute Plan to address problem: - Colonoscopy (+) for small polyp (and brown stool) but there was oozing of blood in the anal canal associated with hemorrhoids, and ?irregular mucosa tissue. - Agree with surgical consult; would prefer to wait for intervention on the pathology of the biopsies of the anal canal. - For now, continue topical care with steroid creams. Subjective Date of service: 12/06/16 Principal diagnosis: Anemia/Rectal Bleed Interval history: The patient states that she had more rectal bleeding last night. She has no N/V /abdominal pain and is tolerating a regular diet. Objective - Constitutional Vitals: Temp Pulse Resp BP Pulse Ox 98.7 F 92 H 20 123/80 100 12/06/16 12:30 12/06/16 12:30 12/06/16 12:30 12/06/16 12:30 12/06/16 12:02 General appearance: no acute distress - EENT Eyes: PERRL, EOM intact ENT: hearing intact, clear oral mucosa - Respiratory Respiratory effort: normal Respiratory: bilateral: CTA - Cardiovascular Rhythm: regular Heart Sounds: Present: S1 & S2 - Gastrointestinal General gastrointestinal: Present: soft, non-tender, non-distended - Labs CBC & Chem 7: 12/06/16 03:43 12/05/16 05:51 Labs: Laboratory Results - last 24 hr 12/06/16 03:43 WBC 8.1 RBC 2.84 L Hgb 6.5 L Hct 21.2 L MCV 75 L MCH 23 L MCHC 31 RDW 21.3 H Plt Count 213 Lymph % (Auto) 33.1 [place] % (Auto) 13.4 H Eos % (Auto) 2.2 Baso % (Auto) 0.5 Lymph # 2.7 [place] # 1.1 H Eos # 0.2 Baso # 0.0 Seg Neutrophils % 50.8 Seg Neutrophils # 4.1
[2016-12-06 21:16] LABS: Hematocrit 24.1 % (30.3-42.9); Hemoglobin 7.6 gm/dl (10.1-14.3)
[2016-12-07 06:30] LABS: Hemoglobin 8.4 gm/dl (10.1-14.3)
[2016-12-07] MEDS: PROCTOSOL-HC PR SCH (07:09)
[2016-12-07] MEDS: PAXIL PO SCH (11:06)
[2016-12-07] MEDS: NORVASC PO SCH ×2 (11:07→18:26)
[2016-12-07] MEDS: COZAAR PO SCH ×2 (11:07→18:26)
[2016-12-07] MEDS: HCTZ PO SCH ×2 (11:07→18:27)
--- NOTE | 2016-12-07 11:12 | Anesthesia Consultation ---
Anesthesia Consult and Med Hx Date of service: 12/07/16 - Airway Anesthetic Teeth Evaluation: Good ROM Head & Neck: Adequate Mental/Hyoid Distance: Adequate Mallampati Class: Class II Intubation Access Assessment: Probably Good - Pulmonary Exam CTA: Yes - Cardiac Exam Cardiac Exam: RRR - Pre-Operative Health Status ASA Pre-Surgery Classification: ASA3 Proposed Anesthetic Plan: General - Cardiovascular System Hx Hypertension: Yes - Central Nervous System Hx Psychiatric Problems: Yes - Other Systems Hx Cancer: No Hx Obesity: Yes (MORBID, BMI 44) - Additional Comments Anesthesia Medical History Comments: NEGATIVE STRESS TEST EF 60% 12/05/16
[2016-12-07] MEDS ORDERED: DILAUDID IV PRN (11:13)
[2016-12-07] MEDS ORDERED: ZOFRAN IV PRN (11:13)
--- NOTE | 2016-12-07 11:13 | Anesthesia Day of Surgery ---
Anesthesia Day of Surgery - Day of Surgery Patient Examined: Yes Patient H&P Reviewed: Yes Patient is NPO: Yes
[2016-12-07] MEDS ORDERED: PEPCID IV SCH (11:35)
[2016-12-07] MEDS ORDERED: DILAUDID IV ONE (11:35)
[2016-12-07] MEDS ORDERED: MARCAINE 0.5% 30 ML INFILTRATI ONE (11:37)
[2016-12-07] MEDS: NACL 0.9% 1000 ML 1,000 ML IV SCH (11:50)
[2016-12-07] MEDS ORDERED: DILAUDID ONE (11:54)
[2016-12-07] MEDS ORDERED: DIPRIVAN 10 MG/ML IV ONE ×2 (11:54→13:01)
[2016-12-07] MEDS ORDERED: DECADRON ONE (11:54)
[2016-12-07] MEDS ORDERED: XYLOCAINE MPF 2% ONE (11:54)
[2016-12-07] MEDS ORDERED: ZOFRAN ONE (11:55)
[2016-12-07] MEDS ORDERED: VERSED IV NR (12:00)
[2016-12-07] MEDS ORDERED: ePHEDrine SULFATE ONE (12:46)
[2016-12-07] MEDS ORDERED: VANCOMYCIN/NS 1 GM/250 ML 1 GM/250 ML BAG IV NR (13:00)
[2016-12-07] MEDS ORDERED: NACL 0.9% IR ONE (13:05)
[2016-12-07] MEDS ORDERED: MARCAINE 0.5% INFILTRATI ONE (13:05)
[2016-12-07] MEDS ORDERED: SUBLIMAZE ONE (13:15)
[2016-12-07] MEDS ORDERED: THROMBIN (BOVINE) TP ONE (13:27)
[2016-12-07] MEDS ORDERED: GELFOAM TP ONE (13:28)
--- NOTE | 2016-12-07 14:04 | Consultation ---
HISTORY OF PRESENT ILLNESS: This patient was seen apparently on here. She came in with severe pain to the anal area with constipation and bleeding per rectum. She was admitted because of the above and she was seen by GI. She had a colonoscopy done yesterday by Dr. Boo. She was told that she has a small polyp in the colon. The reason for me being involved is that she had large hemorrhoids. She had them for may be about two years. She is a little bit on the constipated side. The hemorrhoid symptoms are mainly pain and bleeding, and according to the patient, Dr. Boo did not see hemorrhoids. She had tubal ligation. She never had any abdominal operations. The patient is a known case of hypertension. She is on medication for that. Allergic reactions were denied. She has 3 children. She denies any abdominal pain, any chest pain, any back pain. PHYSICAL EXAMINATION: GENERAL: At this point, she is a well preserved, obese black female. She is in no distress. She is very sociable. She told me that the pain in the anal area is less. HEAD AND NECK: Essentially nonrevealing. BREASTS: Symmetric. No evidence of specific masses. CHEST: Essentially clear. HEART: Sound is normal. ABDOMEN: Protuberant, soft, and benign. RECTAL: Showed evidence of fairly good size of hemorrhoids, stage 2, with some tenderness there. No bleeding. EXTREMITIES: Showed no signs of edema. IMPRESSION: Anal pain with bleeding upon bowel movements with negative colonoscopy except for some small polyps. External and internal hemorrhoid bleeding. I believe this needs to be addressed surgically, we will try to have this done tomorrow under general anesthesia. We will do also a proctoscopy as well. JOB# [id number] PIPO/ROSY
--- NOTE | 2016-12-07 14:28 | Event Note ---
Date: 12/07/16 The patient was not seen as she is apparently downstairs for surgery according to the hospitalist
[2016-12-07] MEDS: PERCOCET 5/325 PO PRN ×2 (14:50→18:26)
--- NOTE | 2016-12-07 15:55 | Operative Report ---
PREOPERATIVE DIAGNOSIS: Large internal and external hemorrhoids. POSTOPERATIVE DIAGNOSIS: Large internal and external hemorrhoids. PROCEDURE: Exam under anesthesia and hemorrhoidectomy. ANESTHESIA: General. BLOOD LOSS: Minimal. FINDINGS: The patient had two large hemorrhoids each measured about 4 x 3 x 3 cm located mainly at the 5 and 7 o'clock axis. There was nothing in the front. I was able to remove them in toto. DESCRIPTION OF PROCEDURE: With the patient in supine position, prepped and draped in usual fashion. I made an incision at the level of the mucocutaneous junction and then undermining the mucosa and the submucosa including the engorged veins. Between two clamps I was able to resect this area and this was closed with continuous stitch of 2-0 catgut on both sides. We had good hemostasis. I did the same for the other side which is the 5 o'clock axis and it was done same fashion leaving area for about 0.5 cm in between. We were once satisfied, the area was then infiltrated with the local anesthetic. I used for that purpose 6 mL of Marcaine and I used also Gelfoam with thrombin. Bandage were applied. The patient was then transferred to the recovery room in good condition. JOB# [id number] PIPO/ROSY
--- NOTE | 2016-12-07 16:16 | Progress Note ---
Assessment and Plan Ms. Schumacher is a 46 y/o female presented with Chest pain and BRBPR x 2 weeks. She was found to be anemic on admission with an H/H of 6.5/25. She recently took 5-6 Goody powders for menstrual cramping, she also reports taking a daily ASA for preventative measures. Colonoscopy was done following admission which showed bleeding due to hemorrhoids. Patient continued to have low hemoglobin following colonoscopy. Surgery was consulted and was taken for hemorrhoidectomy today. Chest pain -Likely due to demand ischemia -Cardiac enzymes are normal -Patient completed her stress test on 12/05 which was normal Acute anemia - GI following, s/p colonoscopy - Due to lower GI bleed from hemorrhoids - s/p 2 units of PRBC transfusion following admission - Hb further dropped following colonoscopy, required another unit of blood transfusion - Surgery was consulted, she had hemorrhoidectomy today HTN uncontrolled - We'll cont on home medications and will adjust medicine as needed - She is currently on HCTZ, Cozaar and amlodipine Hemorrhoids - initially placed on topical steroid -Surgery consulted, s/p hemorrhoidectomy for recurrent bleeding Obesity, likely due to excess calorie - Dietary recommendations when medically stable GI and DVT prophylaxis - Protonix and SCD Procedure: 12/05/16 Colonoscopy with cold bx and cold snare polypectomy Pre-op diagnosis: GI bleed Post-op diagnosis: other (Polyps, Hemorrhoids, Abnormal Anal mucosa) Findings: 1. Poor prep (some semisolid brown stool throughout). 2. 3mm polyp, rectosigmoid, cold snare 3. Grade III IH and EH with trace bleed 4. Some of mucosa in the anal canal was irregular and friable; small biopsy taken Subjective Date of service: 12/07/16 Principal diagnosis: Anemia/Rectal Bleed Interval history: Patient seen and examined. Medical records and medication list reviewed. had hemorrhoidectomy today, she tolerated the procedure well Discussed plan of care at bedside with patient. Objective - Exam Narrative Exam: GENERAL: well-developed obese -[place] female lying on bed appeared to be in no discomfort. HEENT: Normocephalic. Atraumatic. No conjunctival congestion or icterus. Patient has moist mucous membranes. NECK: Supple. Trachea midline. CHEST/LUNGS: Clear to auscultated bilaterally, breathing nonlabored. No wheezes crackles or rhonchi. HEART/CARDIOVASCULAR: Regular in rate and rhythm. S1 and S2 positive. ABDOMEN: Abdomen is soft, nontender. Patient has normal bowel sounds. SKIN: There is no rash. Warm and dry. NEURO: No focal motor deficit. Follows command. MUSCULOSKELETAL: No joint effusion or tenderness. EXTRIMITY: No edema, no cyanosis or clubbing. PSYCH: Cooperative. - Constitutional Vitals: Vital Signs - 12hr 12/07/16 12/07/16 12/07/16 06:23 10:10 10:55 Temperature 98.7 F 98.5 F Pulse Rate 84 80 Pulse Rate [ 86 Right Radial] Respiratory 16 20 Rate Blood Pressure 123/75 Blood Pressure 142/90 [Right Arm] O2 Sat by Pulse 99 99 Oximetry 12/07/16 12/07/16 12/07/16 13:48 13:53 13:55 Temperature 97.9 F Pulse Rate 96 H 127 H 116 H Pulse Rate [ Right Radial] Respiratory 17 22 24 Rate Blood Pressure 93/56 138/77 143/84 Blood Pressure [Right Arm] O2 Sat by Pulse 98 100 99 Oximetry 12/07/16 12/07/16 12/07/16 14:00 14:15 14:30 Temperature Pulse Rate 106 H 107 H 108 H Pulse Rate [ Right Radial] Respiratory 20 18 20 Rate Blood Pressure 130/79 138/92 126/96 Blood Pressure [Right Arm] O2 Sat by Pulse 98 98 97 Oximetry 12/07/16 12/07/16 14:45 14:50 Temperature 98.6 F Pulse Rate 94 H Pulse Rate [ Right Radial] Respiratory 18 18 Rate Blood Pressure 117/83 Blood Pressure [Right Arm] O2 Sat by Pulse 96 Oximetry - Labs CBC & Chem 7: 12/07/16 05:08 12/05/16 05:51 Labs: Abnormal lab results 12/06/16 12/07/16 Range/Units 20:13 05:08 Hgb 7.6 L 8.4 L (10.1-14.3) gm/dl Hct 24.1 L 26.0 L (30.3-42.9) %
--- NOTE | 2016-12-07 16:43 | Post Anesthesia Evaluation ---
- Post Anesthesia Evaluation Patient Participated: Yes Airway Patent: Yes Stable Respiratory Function: Yes Nausea/Vomiting: No Temp > 96.8F: Yes Pain Manageable: Yes Adequeate Hydration: Yes Anesthesia Complications: No Block Receding Appropriately: Not Applicable Patient on Ventilator: No
[2016-12-07] MEDS: DILAUDID IV PRN ×2 (20:00→23:01)
[2016-12-08] MEDS: PERCOCET 5/325 PO PRN ×2 (02:20→09:36)
[2016-12-08] MEDS: PROCTOSOL-HC PR SCH (05:12)
[2016-12-08 06:30] LABS: Basophils % (Auto) 0.3 % (0.0-1.8); Hematocrit 25.2 % (30.3-42.9); Hemoglobin 7.9 gm/dl (10.1-14.3); Mean Corpuscular HGB Conc 32 % (30-34); Mean Corpuscular Hemoglobin 24 pg (28-32); Mean Corpuscular Volume 75 fl (79-97); Platelet Count 257 K/mm3 (140-440); Red Blood Count 3.34 M/mm3 (3.65-5.03); Red Cell Distribution Width 21.7 % (13.2-15.2); White Blood Count 14.4 K/mm3 (4.5-11.0)
[2016-12-08 06:45] LABS: Anion Gap 20 mmol/L; Blood Urea Nitrogen 9 mg/dL (7-17); Calcium 9.1 mg/dL (8.4-10.2); Carbon Dioxide 23 mmol/L (22-30); Glucose 100 mg/dL (65-100); Potassium 4.5 mmol/L (3.6-5.0); Sodium 138 mmol/L (137-145)
--- NOTE | 2016-12-08 08:32 | Discharge Summary ---
Providers - Providers Date of Admission: 12/03/16 20:41 Attending physician: JACKIE OSORIO MD 12/04/16 Consult to Cardiac Rehabilitation [CONS] Routine Reason For Exam: Phase I 12/04/16 01:16 Consult to Physician [CONS] Routine Consulting Provider: JAMAICA MILLS Reason For Exam: Acute anemia Place consult to:: JAMAICA MILLS Notified:: Mj from answering service Phone number called:: [phone] Was contact made?: Yes If yes, spoke with:: Mj Time called:: 06:28 12/06/16 08:06 Consult to Physician [CONS] Routine Consulting Provider: LUCIAN PERSON Reason For Exam: bleeding hemorrhoids Place consult to:: Dr. Person Notified:: Regina CHILEL Phone number called:: Was contact made?: Yes If yes, spoke with:: Dr. Person Time called:: 11:06 Hospitalization Condition: Stable Hospital course: Ms. Schumacher is a 46 y/o female presented with Chest pain and BRBPR x 2 weeks. She was found to be anemic on admission with an H/H of 6.5/25. She recently took 5-6 Goody powders for menstrual cramping, she also reports taking a daily ASA for preventative measures. Colonoscopy was done following admission which showed bleeding due to hemorrhoids. Patient continued to have low hemoglobin following colonoscopy. Surgery was consulted and was taken for hemorrhoidectomy today. Chest pain -Likely due to demand ischemia -Cardiac enzymes are normal -Patient completed her stress test on 12/05 which was normal Acute anemia - GI following, s/p colonoscopy - Due to lower GI bleed from hemorrhoids - s/p 2 units of PRBC transfusion following admission - Hb further dropped following colonoscopy, required another unit of blood transfusion - Surgery was consulted, she had hemorrhoidectomy today HTN uncontrolled - We'll cont on home medications and will adjust medicine as needed - She is currently on HCTZ, Cozaar and amlodipine Hemorrhoids - initially placed on topical steroid -Surgery consulted, s/p hemorrhoidectomy for recurrent bleeding Obesity, likely due to excess calorie - Dietary recommendations when medically stable GI and DVT prophylaxis - Protonix and SCD Procedure: 12/05/16 Colonoscopy with cold bx and cold snare polypectomy Pre-op diagnosis: GI bleed Post-op diagnosis: other (Polyps, Hemorrhoids, Abnormal Anal mucosa) Findings: 1. Poor prep (some semisolid brown stool throughout). 2. 3mm polyp, rectosigmoid, cold snare 3. Grade III IH and EH with trace bleed 4. Some of mucosa in the anal canal was irregular and friable; small biopsy taken Disposition: DISCHARGED TO HOME OR SELFCARE Time spent for discharge: 35 minutes Exam - Constitutional Vitals: Temp Pulse Resp BP Pulse Ox 99.4 F 89 20 120/58 100 12/08/16 06:08 12/08/16 06:08 12/08/16 06:08 12/08/16 06:08 12/08/16 06:08 Plan Prescriptions: Losartan [Cozaar] 100 mg PO QDAY #30 tablet oxyCODONE /ACETAMINOPHEN [Percocet 5/325 mg] 1 tab PO Q6H PRN #30 tablet PRN Reason: Pain, Moderate (4-6) Pantoprazole [Protonix] 40 mg PO BID #60 tablet
[2016-12-08] MEDS ORDERED: TUCKS PAD TP PRN (09:00)
[2016-12-08] MEDS: DILAUDID IV PRN (09:12)
[2016-12-08] MEDS: PAXIL PO SCH ×2 (09:36→09:37)
[2016-12-08] MEDS: COZAAR PO SCH (13:10)
[2016-12-08 13:11] VITALS: BP 114/84
[2016-12-08] MEDS: HCTZ PO SCH (13:11)
[2016-12-08] MEDS: NORVASC PO SCH (13:11)
== END 2016-12-08 13:30 | disposition home or self-care (01) | DRG 988 ==
LOC: ED 13:09 → 4A 20:41
PROVIDERS: ADMIT Internal Medicine; ATTEND Internal Medicine
PROC: 0DBN8ZX Excision of Sigmoid Colon, Via Natural or Artificial Opening Endoscopic, Diagnostic (ICD-10-PCS; principal; 2016-12-05)
PROC: 0DBQ8ZX Excision of Anus, Via Natural or Artificial Opening Endoscopic, Diagnostic (ICD-10-PCS; 2016-12-05)
PROC: 4A02XM4 Measurement of Cardiac Total Activity, External Approach (ICD-10-PCS; 2016-12-05)
PROC: 30233N1 Transfusion of Nonautologous Red Blood Cells into Peripheral Vein, Percutaneous Approach (ICD-10-PCS; 2016-12-06)
PROC: 06LY0ZC Occlusion of Hemorrhoidal Plexus, Open Approach (ICD-10-PCS; 2016-12-07)
DX: D64.9 Anemia, unspecified (principal); Z68.41 Body mass index [BMI] 40.0-44.9, adult; K62.5 Hemorrhage of anus and rectum; K64.9 Unspecified hemorrhoids; I20.9 Angina pectoris, unspecified; I10 Essential (primary) hypertension; E66.01 Morbid (severe) obesity due to excess calories; F41.9 Anxiety disorder, unspecified; Z88.0 Allergy status to penicillin; Z87.891 Personal history of nicotine dependence; Z98.51 Tubal ligation status; Z82.49 Family history of ischemic heart disease and other diseases of the circulatory system
CPT/HCPCS: 36415; 71010; 78452; 80048; 80053; 81025; 82550; 82553; 83735; 83880; 84484; 85014; 85018; 85025; 86850; 86900; 86901; 86920; 88304; 88305; 93005; 93010; 93017; 93306; 96374; A4649; A9502; C9113; J1100; J1170; J1200; J2250; J2405; J2704; J2785; J3010; J3370; J7030; P9016

== ENCOUNTER 2017-01-06 12:39 | Emergency (ER) | payer SELFPAY ==
--- NOTE | 2017-01-06 12:59 | Emergency Department Report ---
Chief Complaint: Chest Pain Stated Complaint: CHEST PAIN/NAUSEA Time Seen by Provider: 01/06/17 12:53 - HPI History of Present Illness: PT c/o cp since 1030. PT states she was at work when she started having her symptoms. PT states she had this same pain last month and it was due to being anemic. PT states she just stopped her menstrual cycle yesterday. lmp - -- 17 - ROS Review of Systems: + nausea - vomiting + chest pain no active vaginal bleeding - Exam Physical Exam: Obese female, no acute resp distress. PT is tachycardic. MSE screening note: Focused history and physical exam performed. Due to findings the following was ordered: labs, ekg, xr ED Disposition for MSE Condition: Stable
--- NOTE | 2017-01-06 13:24 | Emergency Department Report ---
ED Chest Pain HPI - General Chief Complaint: Chest Pain Stated Complaint: CHEST PAIN/NAUSEA Time Seen by Provider: 01/06/17 12:53 Source: patient Mode of arrival: Ambulatory Limitations: No Limitations - History of Present Illness Initial Comments: 46-year-old female with a past medical history of hypertension and a recent admission for rectal bleeding secondary to hemorrhoids and polyps presents to the hospital complains of chest pressure since 10:30 this morning. Pain is across the upper and mid right and left chest, intermittent, worse with lifting , climbing stairs, and walking. Positive so she shortness of breath, nausea, and diaphoresis. Patient denies anticoagulate or aspirin use. She denies abdominal pain, melena, hematochezia, or hematemesis. Patient is recently admitted early November for rectal bleeding, symptomatic anemia with associated chest pain. Patient had a unremarkable stress test at that time and required blood transfusion. She also had a colonoscopy identifying hemorrhoids and polyps. Patient states she had a polypectomy and hemorrhoidectomy during that admission. Patient also noted to have irritable and friable mucosa in the anal canal and a biopsy was taken. Patient has been compliant with the medication and took her dose of medicine this a.m. - Related Data Home Medications Medication Instructions Recorded Confirmed Last Taken Hydrochlorothiazide [HCTZ] 25 mg PO DAILY 12/03/16 01/06/17 01/06/17 PARoxetine [Paxil] 20 mg PO DAILY 12/03/16 01/06/17 01/06/17 amLODIPine [Norvasc] 5 mg PO DAILY 12/03/16 01/06/17 01/06/17 Aspirin [Adult Low Dose Aspirin EC] 81 mg PO DAILY 01/06/17 01/06/17 Unknown Famotidine [Pepcid] 20 mg PO BID PRN 01/06/17 01/06/17 01/05/17 Previous Rx's Medication Instructions Recorded Last Taken Type Losartan [Cozaar] 100 mg PO QDAY #30 tablet 12/05/16 01/06/17 Rx Pantoprazole [Protonix] 40 mg PO BID #60 tablet 12/05/16 01/06/17 Rx oxyCODONE /ACETAMINOPHEN [Percocet 1 tab PO Q6H PRN #30 tablet 12/08/16 Rx 5/325 mg] Allergies Allergy/AdvReac Type Severity Reaction Status Date / Time Penicillins Allergy Shortness Verified 01/06/17 13:01 of Breath ANGELO score - Angelo Score Age > 65: (0) No Aspirin use within the Past 7 Days: (0) No 3 or more CAD Risk Factors: (0) No 2 or more Angina events in past 24 hrs: (1) Yes Known CAD with more than 50% Stenosis: (0) No Elevated Cardiac Markers: (0) No ST Deviation Greater than 0.5mm: (0) No ANGELO Score: 1 ED Review of Systems ROS: Stated complaint: CHEST PAIN/NAUSEA Other details as noted in HPI Comment: All other systems reviewed and negative Other: Constitutional: No fevers chills Eyes: No eye pain visual changes or discharge ENT: No ear pain or throat pain Neck: Denies pain Respiratory: Denies cough wheezing Cardiovascular: Denies palpitations, syncope GI: Denies abdominal pain, nausea, vomiting, diarrhea : Denies dysuria Musculoskeletal: Denies back pain Skin: Denies rash, lesions, erythema Neurologic: Denies headache, numbness, weakness Psychiatric: Denies suicidal ideation, hallucinations ED Past Medical Hx - Past Medical History Hx Hypertension: Yes - Surgical History Additional Surgical History: HEMORRHOIDECTOMY. RECTAL POLYPS REMOVED. TUBAL LIGATION - Social History Smoking Status: Former Smoker - Medications Home Medications: Home Medications Medication Instructions Recorded Confirmed Last Taken Type Hydrochlorothiazide [HCTZ] 25 mg PO DAILY 12/03/16 01/06/17 01/06/17 History PARoxetine [Paxil] 20 mg PO DAILY 12/03/16 01/06/17 01/06/17 History amLODIPine [Norvasc] 5 mg PO DAILY 12/03/16 01/06/17 01/06/17 History Losartan [Cozaar] 100 mg PO QDAY #30 tablet 12/05/16 01/06/17 01/06/17 Rx Pantoprazole [Protonix] 40 mg PO BID #60 tablet 12/05/16 01/06/17 01/06/17 Rx oxyCODONE /ACETAMINOPHEN [Percocet 1 tab PO Q6H PRN #30 tablet 12/08/1601/06/17 Rx 5/325 mg] Aspirin [Adult Low Dose Aspirin EC] 81 mg PO DAILY 01/06/17 01/06/17 Unknown History Famotidine [Pepcid] 20 mg PO BID PRN 01/06/17 01/06/17 01/05/17 History ED Physical Exam - General Limitations: No Limitations - Other Other exam information: General: No limitations, patient is alert in no acute distress Head exam: Atraumatic, normocephalic Eyes exam: Normal appearance, ENT: Moist mucous membrane, normal oropharynx Neck exam: Normal inspection, full range of motion Respiratory exam: Clear to auscultation bilateral, no wheezes, rales, crackles Cardiovascular: Mild chest wall tenderness anteriorly. Tachycardic regular rhythm Abdomen: Soft, nondistended, and nontender, with normal bowel sounds, no rebound, or guarding Rectal: Guaiac-negative brown stool. External hemorrhoids no active bleeding Extremity: Full range of motion normal inspection no deformity Back: Normal Inspection, full range of motion, no tenderness Neurologic: Alert, oriented x3, cranial nerves intact, no motor or sensory deficit Psychiatric: normal affect, normal mood Skin: Warm, dry, intact ED Course Vital Signs 01/06/17 01/06/17 01/06/17 12:56 13:43 13:50 Temperature 98.6 F Pulse Rate 122 H 111 H Respiratory 18 21 Rate Blood Pressure 181/119 144/79 O2 Sat by Pulse 99 98 96 Oximetry 01/06/17 14:16 Temperature Pulse Rate 109 H Respiratory Rate Blood Pressure 146/99 O2 Sat by Pulse Oximetry - Consultations Consultation #1: 01/06/17 13:15 Case was discussed with Dr. Carter regarding EKG changes. He revealed previous and current ekg and agrees that there is acute EKG changes however, no signs of ST elevation TN at this time. ED Medical Decision Making - Lab Data Result diagrams: 01/06/17 13:02 01/06/17 13:02 Lab Results 01/06/17 01/06/17 01/06/17 Range/Units 13:02 13:02 13:02 WBC 10.5 (4.5-11.0) K/mm3 RBC 4.27 (3.65-5.03) M/mm3 Hgb 9.2 L (10.1-14.3) gm/dl Hct 30.5 (30.3-42.9) % MCV 72 L (79-97) fl MCH 22 L (28-32) pg MCHC 30 (30-34) % RDW 24.2 H (13.2-15.2) % Plt Count 319 (140-440) K/mm3 Lymph % (Auto) 22.4 (13.4-35.0) % [place] % (Auto) 9.1 H (0.0-7.3) % Eos % (Auto) 0.3 (0.0-4.3) % Baso % (Auto) 0.6 (0.0-1.8) % Lymph # 2.4 (1.2-5.4) K/mm3 [place] # 1.0 H (0.0-0.8) K/mm3 Eos # 0.0 (0.0-0.4) K/mm3 Baso # 0.1 (0.0-0.1) K/mm3 Seg Neutrophils % 67.6 (40.0-70.0) % Seg Neutrophils # 7.1 (1.8-7.7) K/mm3 PT 14.2 (12.2-14.9) Sec. INR 1.11 (0.87-1.13) APTT 33.7 (24.2-36.6) Sec. D-Dimer (0-234) ng/mlDDU Sodium 136 L (137-145) mmol/L Potassium 3.5 L (3.6-5.0) mmol/L Chloride 95.6 L (98-107) mmol/L Carbon Dioxide 21 L (22-30) mmol/L Anion Gap 23 mmol/L BUN 16 (7-17) mg/dL Creatinine 0.6 L (0.7-1.2) mg/dL Estimated GFR > 60 ml/min BUN/Creatinine Ratio 26.66 % Glucose 132 H (65-100) mg/dL Calcium 9.5 (8.4-10.2) mg/dL Total Bilirubin 0.30 (0.1-1.2) mg/dL AST 18 (5-40) units/L ALT 14 (7-56) units/L Alkaline Phosphatase 87 (35-129) units/L Total Creatine Kinase (30-135) units/L CK-MB (CK-2) (0.0-4.0) ng/mL CK-MB (CK-2) Rel Index (0-4) Troponin T < 0.010 (0.00-0.029) ng/mL Total Protein 8.3 H (6.3-8.2) g/dL Albumin 4.3 (3.9-5) g/dL Albumin/Globulin Ratio 1.1 % Blood Type Antibody Screen 01/06/17 01/06/17 01/06/17 Range/Units 13:02 13:02 13:02 WBC (4.5-11.0) K/mm3 RBC (3.65-5.03) M/mm3 Hgb (10.1-14.3) gm/dl Hct (30.3-42.9) % MCV (79-97) fl MCH (28-32) pg MCHC (30-34) % RDW (13.2-15.2) % Plt Count (140-440) K/mm3 Lymph % (Auto) (13.4-35.0) % [place] % (Auto) (0.0-7.3) % Eos % (Auto) (0.0-4.3) % Baso % (Auto) (0.0-1.8) % Lymph # (1.2-5.4) K/mm3 [place] # (0.0-0.8) K/mm3 Eos # (0.0-0.4) K/mm3 Baso # (0.0-0.1) K/mm3 Seg Neutrophils % (40.0-70.0) % Seg Neutrophils # (1.8-7.7) K/mm3 PT (12.2-14.9) Sec. INR (0.87-1.13) APTT (24.2-36.6) Sec. D-Dimer 206.84 (0-234) ng/mlDDU Sodium (137-145) mmol/L Potassium (3.6-5.0) mmol/L Chloride (98-107) mmol/L Carbon Dioxide (22-30) mmol/L Anion Gap mmol/L BUN (7-17) mg/dL Creatinine (0.7-1.2) mg/dL Estimated GFR ml/min BUN/Creatinine Ratio % Glucose (65-100) mg/dL Calcium (8.4-10.2) mg/dL Total Bilirubin (0.1-1.2) mg/dL AST (5-40) units/L ALT (7-56) units/L Alkaline Phosphatase (35-129) units/L Total Creatine Kinase 242 H (30-135) units/L CK-MB (CK-2) 2.7 (0.0-4.0) ng/mL CK-MB (CK-2) Rel Index 1.1 (0-4) Troponin T (0.00-0.029) ng/mL Total Protein (6.3-8.2) g/dL Albumin (3.9-5) g/dL Albumin/Globulin Ratio % Blood Type O POSITIVE Antibody Screen TNR - Radiology Data Radiology results: report reviewed (chest x-ray: Unremarkable) - Medical Decision Making Patient has exertional chest pain with associated dyspnea and nausea. Positive acute EKG changes reviewed by cardiology. Initial troponin is negative. Patient hemoglobin is stable and no signs of acute GI bleed at this time. Patient has tachycardia and 500 a normal saline bolus ordered. D-dimer less than 250 and patient without signs of DVT. Patient be admitted to the hospital further cardiac workup. Nitroglycerin paste, NS, and Asa provided in ed. BP actually improved spontaneously prior to nitroglycerin administration. - Differential Diagnosis TN, symptomatic anemia, unstable angina, PE Critical Care Time: No Critical care attestation.: If time is entered above; I have spent that time in minutes in the direct care of this critically ill patient, excluding procedure time. ED Disposition Clinical Impression: Chest pain, Anemia, HTN (hypertension), Tachycardia Disposition: OP ADMIT IP TO THIS HOSP Is pt being admited?: Yes Does the pt Need Aspirin: Yes Condition: Stable Referrals: PRIMARY CARE, [Primary Care Provider] - 3-5 Days Time of Disposition: 14:31 (Dr Martinez/[facility])
[2017-01-06 13:30] LABS: INR 1.11 (0.87-1.13)
[2017-01-06 13:31] LABS: Partial Thromboplastin Time 33.7 Sec. (24.2-36.6)
[2017-01-06 13:41] LABS: Alanine Aminotransferase 14 units/L (7-56); Albumin 4.3 g/dL (3.9-5); Albumin/Globulin Ratio 1.1 %; Alkaline Phosphatase 87 units/L (35-129); Anion Gap 23 mmol/L; BUN/Creatinine Ratio 26.66; Blood Urea Nitrogen 16 mg/dL (7-17); Calcium 9.5 mg/dL (8.4-10.2); Carbon Dioxide 21 mmol/L (22-30); Chloride 95.6 mmol/L (98-107); Glucose 132 mg/dL (65-100); Potassium 3.5 mmol/L (3.6-5.0); Sodium 136 mmol/L (137-145); Total Protein 8.3 g/dL (6.3-8.2)
[2017-01-06 13:46] LABS: Creatine Kinase MB 2.7 ng/mL (0.0-4.0)
[2017-01-06] MEDS ORDERED: NITRO-BID 2% TP ONE ×4 (13:50→14:10)
[2017-01-06] MEDS ORDERED: NACL 0.9% 500 ML 500 ML IV ONE (13:54)
[2017-01-06 13:59] LABS: Basophils % (Auto) 0.6 % (0.0-1.8); Eosinophils % (Auto) 0.3 % (0.0-4.3); Hematocrit 30.5 % (30.3-42.9); Hemoglobin 9.2 gm/dl (10.1-14.3); Mean Corpuscular HGB Conc 30 % (30-34); Mean Corpuscular Volume 72 fl (79-97); Platelet Count 319 K/mm3 (140-440); Red Blood Count 4.27 M/mm3 (3.65-5.03); White Blood Count 10.5 K/mm3 (4.5-11.0)
[2017-01-06 14:03] LABS: Mean Corpuscular Hemoglobin 22 pg (28-32); Red Cell Distribution Width 24.2 % (13.2-15.2)
--- NOTE | 2017-01-06 14:10 | XRay Report ---
ROUTINE CHEST, TWO VIEWS: HISTORY: chest pain. The trachea, heart, mediastinal contour, lung gandhi and bony thorax are unremarkable. IMPRESSION: Unremarkable chest x-ray.
[2017-01-06] MEDS ORDERED: ASPIRIN PO ONE (14:34)
--- NOTE | 2017-01-06 15:27 | Admit Criteria Form ---
Admission Criteria Documentation: CARDIOLOGY GRG Clinical Indications for Admission to Inpatient Care ( Place 'X' for any and all applicable criteria): Hospital admission is needed for appropriate care of the patient because of ANY ONE of the following (1): [ ] I. Hemodynamic instability as indicated by ALL of the following (1)(2)(3) (4)(5) [ ]a) Vital signs or other findings not as expected for chronic patient condition or baseline [ ]b) Instability indicated by ANY ONE of the following: [ ]i) Hypotension [ ]ii) Symptomatic Tachycardia unresponsive to treatment ( e.g., analgesia, fluids, sedation as indicated) [ ]iii) Inadequate perfusion indicated by ANY ONE of the following: [ ] 1) Lactic acidosis (> 2 mmol/L) [ ] 2) New abnormal capillary refill (> 3 seconds) [ ] 3) Reduced urine output [ ] 4) New altered mental status [ ]iv) Orthostatic vital sign changes unresponsive to treatment (e.g., fluids) [ ]v) IV inotropic or vasopressor medication required to maintain adequate blood pressure or perfusion [ ] II. Severe heart failure as indicated by ANY ONE of the following(17)(18) [ ]a) Respiratory distress [ ]b) Hypotension [ ]c) Anasarca (refractory to outpatient therapy) [ ]d) Cardiac arrhythmias of immediate concern [ ]e) Myocardial ischemia [ ] III. Cardiac arrhythmias or findings of immediate concern indicated by ANY ONE of the following (19)(20): [ ] a) Heart rhythms that are inherently dangerous or unstable indicated by ANY ONE of the following (21)(22)(23): [ ] i) Resuscitated ventricular fibrillation or cardiac arrest [ ] ii) Ventricular escape rhythm [ ] iii) Sustained ventricular tachycardia (30 seconds or more of ventricular rhythm at greater than 100 beats per minute) [ ] iv) Nonsustained ventricular tachycardia and ANY ONE of the following: [ ] 1) Suspected cardiac ischemia as cause or consequence of ventricular tachycardia [ ] 2) In setting of acute myocarditis [ ] b) Unstable cardiac conduction defects indicated by ANY ONE of the following(23)(24)(25) [ ] i) Type II second-degree atrioventricular block [ ]ii) Third-degree atrioventricular block [ ]iii) New-onset left bundle branch block with suspected myocardial ischemia [ ]c) Any heart rhythm and ANY ONE of the following (21)(22)(26)(27) (28) [ ] i) Continuous long-term ECG monitoring needed (e.g., initiation of drug requiring monitoring for more than 24 hours) [ ] ii) Patient has automatic implanted cardioverter defibrillator that is repeatedly firing, malfunctioning, or in need of immediate adjustment of settings beyond the scope of ambulatory or observation care [ ]d) Heart rhythms of concern due to ANY ONE of the following: [ ] i) Hypotension [ ] ii) Respiratory distress [ ] iii) Association with other significant symptoms (e.g., bradycardia with syncope or ongoing dizziness, supraventricular tachycardia with chest pain (14)(15)(17) [ ] IV. Monitoring for cardiac contusion beyond the scope of observation care needed [A](30)(31)(32) [ ] V. Surgical or device complication (e.g., valve replacement complication , pacemaker dysfunction) (35)(41)(44)(45)(46) [ ] . Inpatient palliative care needed. [B](49) Also use Inpatient Palliative Care Criteria [ ] VII. Nonbacterial thrombotic (marantic) endocarditis (36)(43)(47)(48) [ X] VIII. Cardiology condition, symptom, or finding for which emergency and observation care has failed or are not considered appropriate. [ ] IX. Acute valvular disease requiring inpatient as indicated by ANY ONE of the following (41) [ ]a) Acute valvular regurgitation (42) [ ]b) Noninfectious valvulitis (43) [ ]c) Obstructive valve thrombosis [ ]d) Paravalvular leak [ ]e) Other significant valvular disorder remaining after emergency or observation level of care (as appropriate) [ ]X. Pericardial disease requiring inpatient treatment as indicated by ANY ONE of the following (33)(34)(35)(36)(37) [ ]a) Suspected tamponade (38)(39)(40) [ ]b) Hemopericardium [ ]c) Other significant pericardial disorder remaining after emergency or observation level of care (as appropriate) [ ] XI. Cardiac ischemia beyond scope of emergency and observation care. [ ] XII. Hypertension requiring inpatient treatment as indicated by ANY ONE of the following (6)(7)(8) [ ]a) SBP greater than 220 mm Hg or DBP greater than 120 mmHg despite treatment [ ]b) SBP greater than 140 mm Hg or DBP greater than 100 mm Hg with evidence of acute end organ damage as indicated by ANY ONE of the following [ ] i) Altered mental status [ ] ii) Acute renal failure as indicated by new onset of ANY ONE of the following (9)(10)(11)(12)(13) [ ]1) 3-fold rise in serum creatinine from baseline [ ]2) Serum creatinine greater than 4 mg/dL ( 354 micromoles/L) with acute rise greater than 0.5 mg/dL (44.2 micromoles/L) [ ]3) Reduction of more than 75% in estimated glomerular filtration rate from baseline [ ]4) Estimated glomerular filtration rate less than 35 mL/min/1.73m2 (0.59 mL/sec/1.73m2) in child up to 18 years of age [ ]5) Cessation of urine output indicated by ALL of the following [ ]A. Adequate volume status [ ]B. Inadequate urine output as indicated by ANY ONE of the following [ ]a. Urine output less than 0.3 mL/kg/hr for 24 hours [ ]b. Anuria (urine output less than 0.1 mL/kg/hr) for 12 hours [ ] iii) Aortic dissection [ ] iv) Myocardial Ischemia [ ] v) Left ventricular heart failure [ ]vi) Retinal Hemorrhage [ ]vii) Other significant finding [ ]c) Hypertension in child requiring inpatient treatment as indicated by ALL of the following(14)(15)(16) [ ] i) Outpatient treatment not effective, not available, or not appropriate [ ]ii) SBP or DBP greater than 95th percentile for age [ ]iii) Evidence of acute end organ damage as indicated by ANY ONE of the following [ ]1) Altered mental status [ ]2) Acute renal failure as indicated by new onset of ANY ONE of the following(9)(10)(11)(12)(13) [ ]A. 3-fold rise in serum creatinine from baseline [ ]B. Serum creatinine greater than 4 mg/dL (354 micromoles/L) with acute rise greater than 0.5 mg/dL (44.2 micromoles/L) [ ]C. Reduction of more than 75% in estimated glomerular filtration rate from baseline [ ]D. Estimated glomerular filtration rate less than 35 mL/min/1.73m2 (0.59 mL/sec/1.73m2) in child up to 18 years of age [ ]E. Cessation of urine output indicated by ALL of the following [ ]a. Adequate volume status [ ]b. Inadequate urine output as indicated by ANY ONE of the following [ ]i) Urine output less than 0.3 mL/kg/hr for 24 hours [ ]ii) Anuria ( urine output less than 0.1 mL/kg/hr) for 12 hours [ ]3) Severe headache [ ]4) Visual disturbance [ ]5) Retinal hemorrhage [ ]6) Other significant finding [ ]XIII. Complications of transplanted heart indicated by ANY ONE of the following(61): [ ]a) Acute graft rejection requiring inpatient management (eg, intravenous immunosuppression)(62)(63) [ ]b) Acute graft heart failure indicated by ANY ONE of the following(64): [ ]i) Hemodynamic instability [ ]ii) Cardiac arrhythmias of immediate concern [ ]iii) Pulmonary edema that is very severe (eg, mechanical ventilation needed, imminent or likely, need for 100% oxygen to keep oxygen saturation above 90%) [ ]iv) Pulmonary edema that is persistent as indicated by ALL of the following: [ ]1) New need for oxygen therapy to keep oxygen saturation above 90% (or increased FiO2 need from baseline) [ ]2) Has not improved sufficiently with emergency department or observation care IV diuretics or other heart failure treatments[E] [ ]v) Altered mental status that is severe or persistent [ ]vi) Increased creatinine (new on laboratory test) with reduction of more than 50% in estimated glomerular filtration rate from baseline [ ]vii) Progressively (ongoing) rising creatinine (known from past laboratory test) with reduction of more than 25% in estimated glomerular filtration rate from baseline [ ]viii) Acute renal failure [ ]ix) Acute peripheral ischemia (eg, examination shows pulseless, cool, mottled, or cyanotic extremity) [ ]x) Pulmonary artery catheter monitoring needed [ ]xi) Other sign or symptom of heart failure requiring inpatient treatment (ie, too severe or not responsive to outpatient and observation care treatment) [ ]c) Infection requiring inpatient management (eg, Hemodynamic instability, need for intravenous antimicrobial treatment)(66)(67)(68)(69)(70) [ ]d) Cardiac allograft vasculopathy requiring inpatient management ( eg evidence of cardiac ischemia)(71) [ ]e) Other complication of transplanted heart (eg, stroke, severe pulmonary hypertension, severe valvular dysfunction) requiring inpatient management(72) The original [facility] [employer] content created by [facility] has been revised. The portions of the content which have been revised are identified through the use of italic text or in bold, and [facility] has neither reviewed nor approved the modified material. All other unmodified content is copyright [facility] [employer]. Please see references footnoted in the original [facility] [employer] edition 2016 Admission Criteria Met: Yes
--- NOTE | 2017-01-06 16:07 | Consultation ---
History of Present Illness - Reason for Consult Consult date: 01/06/17 Requesting physician: ANGELA BURNHAM - History of Present Illness 46 YO Female with HTN, Obesity presents to ED for evaluation. Pt states that she has been experiencing chest pressure since 10:30 this morning. Pain is across the upper and mid right and left chest, intermittent, worse with lifting , climbing stairs, and walking, 4/10, constant, nonradiating and is associated with meals and causes shortness of breath, nausea, and diaphoresis. Patient denies anticoagulate or aspirin use. She denies abdominal pain, melena, hematochezia, or hematemesis. Past History Past Medical History: hypertension Past Surgical History: Other (tubal, hemorrhoidectomy) Social history: single. denies: smoking, alcohol abuse, prescription drug abuse Family history: diabetes, hypertension Medications and Allergies Allergies Allergy/AdvReac Type Severity Reaction Status Date / Time Penicillins Allergy Shortness Verified 01/06/17 13:01 of Breath Home Medications Medication Instructions Recorded Confirmed Last Taken Type Hydrochlorothiazide [HCTZ] 25 mg PO DAILY 12/03/16 01/06/17 01/06/17 History PARoxetine [Paxil] 20 mg PO DAILY 12/03/16 01/06/17 01/06/17 History amLODIPine [Norvasc] 5 mg PO DAILY 12/03/16 01/06/17 01/06/17 History Losartan [Cozaar] 100 mg PO QDAY #30 tablet 12/05/16 01/06/17 01/06/17 Rx Pantoprazole [Protonix] 40 mg PO BID #60 tablet 12/05/16 01/06/17 01/06/17 Rx oxyCODONE /ACETAMINOPHEN [Percocet 1 tab PO Q6H PRN #30 tablet 12/08/1601/06/17 Rx 5/325 mg] Aspirin [Adult Low Dose Aspirin EC] 81 mg PO DAILY 01/06/17 01/06/17 Unknown History Famotidine [Pepcid] 20 mg PO BID PRN 01/06/17 01/06/17 01/05/17 History Pantoprazole [Protonix] 40 mg PO BID #30 tablet 01/06/17 Unknown Rx Review of Systems All systems: negative Cardiovascular: chest pain Exam - Constitutional Vitals: Temp Pulse Resp BP Pulse Ox 98.6 F 108 H 14 139/80 99 01/06/17 12:56 01/06/17 15:40 01/06/17 15:40 01/06/17 15:40 01/06/17 15:40 General appearance: Present: obese - EENT Eyes: Present: PERRL ENT: hearing intact, clear oral mucosa - Neck Neck: Present: supple, normal ROM - Respiratory Respiratory effort: normal Respiratory: bilateral: CTA - Cardiovascular Heart Sounds: Present: S1 & S2. Absent: rub, click - Extremities Extremities: pulses symmetrical, No edema Peripheral Pulses: within normal limits - Abdominal General gastrointestinal: Present: soft, non-tender, non-distended, normal bowel sounds Female genitourinary: Present: normal - Integumentary Integumentary: Present: clear, warm, dry - Musculoskeletal Musculoskeletal: gait normal, strength equal bilaterally - Psychiatric Psychiatric: appropriate mood/affect, intact judgment & insight - Neurologic Neurologic: CNII-XII intact, moves all extremities Results - Labs CBC & Chem 7: 01/06/17 13:02 01/06/17 13:02 Labs: Abnormal lab results 01/06/17 01/06/17 01/06/17 Range/Units 13:02 13:02 13:02 Hgb 9.2 L (10.1-14.3) gm/dl MCV 72 L (79-97) fl MCH 22 L (28-32) pg RDW 24.2 H (13.2-15.2) % [place] % (Auto) 9.1 H (0.0-7.3) % [place] # 1.0 H (0.0-0.8) K/mm3 Sodium 136 L (137-145) mmol/L Potassium 3.5 L (3.6-5.0) mmol/L Chloride 95.6 L (98-107) mmol/L Carbon Dioxide 21 L (22-30) mmol/L Creatinine 0.6 L (0.7-1.2) mg/dL Glucose 132 H (65-100) mg/dL Total Creatine Kinase 242 H (30-135) units/L Total Protein 8.3 H (6.3-8.2) g/dL Assessment and Plan - Patient Problems (1) Atypical chest pain Status: Acute Plan to address problem: Serial cardiac enzymes, ekg, telemetry unremarkable for acute ischemia (2) Obesity Status: Acute Qualifiers: Obesity type: O Obesity severity: O Plan to address problem: Pt counseled, (3) GERD with esophagitis Status: Acute Plan to address problem: PPI therapy, outpatient f/u with pcp (4) HTN (hypertension) Status: Acute Qualifiers: Hypertension type: H Plan to address problem: resume home medication, f/u pcp 3-5 days for f/u care.
[2017-01-06 18:02] VITALS: BP 128/74
== END 2017-01-06 18:18 | disposition admitted as inpatient to this hospital (09) ==
LOC: ED 12:39
DX: R07.9 Chest pain, unspecified (principal); D64.9 Anemia, unspecified; I10 Essential (primary) hypertension; R00.0 Tachycardia, unspecified; Z88.0 Allergy status to penicillin; Z87.891 Personal history of nicotine dependence; R61 Generalized hyperhidrosis
CPT/HCPCS: 36415; 71020; 80053; 82271; 82550; 82553; 84484; 85025; 85379; 85610; 85730; 86850; 86900; 86901; 93005; 93010; 96360; 99285; J7040